=== PATIENT | female | born 1965 | race Caucasian/White ===

== ENCOUNTER 2016-12-22 07:24 | Emergency (ER) | payer OTHER ==
[2016-12-22 07:33] VITALS: BP 140/92; PULSE 100; TEMP 97.6; BMI 30.4
--- NOTE | 2016-12-22 07:40 | PDOC ---
History of Present Illness - General Chief Complaint: Respiratory Stated Complaint: COUGH Time Seen by Provider: 12/22/16 07:38 History Source: Patient Exam Limitations: No Limitations Past History - Past Medical History Allergies/Adverse Reactions: Allergies Allergy/AdvReac Type Severity Reaction Status Date / Time Penicillins Allergy Mild Verified 12/22/16 07:27 amlodipine Allergy Verified 12/22/16 07:27 amoxicillin Allergy Verified 12/22/16 07:27 clonidine Allergy Verified 12/22/16 07:27 diltiazem Allergy Verified 12/22/16 07:27 nebivolol HCl [From Bystolic] Allergy Verified 12/22/16 07:27 triamterene Allergy Verified 12/22/16 07:27 epinephrine AdvReac Severe Verified 12/22/16 07:27 lisinopril AdvReac Unknown Verified 12/22/16 07:27 Home Medications: Ambulatory Orders Diazepam [Valium] 5 mg PO PRN PRN 12/17/15 Loratadine [Claritin] 10 mg PO DAILY PRN #10 tablet 12/22/16 Anemia: No Asthma: No Cancer: No Cardiac Disorders: No CVA: No COPD: No CHF: No Dementia: No Diabetes: No GI Disorders: No Disorders: Yes (KIDNEY STONES,LITHOTRIPSY) HTN: Yes Hypercholesterolemia: No Liver Disease: No Psychiatric Problems: Yes (ANXIETY) Seizures: No Thyroid Disease: No - Psycho/Social/Smoking Cessation Hx Anxiety: No Suicidal Ideation: No Smoking History: Current every day smoker Have you smoked in the past 12 months: Yes Number of Cigarettes Smoked Daily: 10 Information on smoking cessation initiated: No 'Breaking Loose' booklet given: 07/31/16 Hx Alcohol Use: No Drug/Substance Use Hx: No Substance Use Type: None Review of Systems - Review of Systems Comments:: 12/22/16 08:47 GENERAL/CONSTITUTIONAL: No fever, weakness. HEAD, EYES, EARS, NOSE AND THROAT: No change in vision. No ear pain or discharge. No sore throat. CARDIOVASCULAR: No chest pain or shortness of breath. RESPIRATORY: +cough GASTROINTESTINAL: No abdominal pain, nausea, vomiting, diarrhea, or decreased PO intolerance. GENITOURINARY: No dysuria, frequency, or change in urination. MUSCULOSKELETAL: No joint or muscle swelling or pain. No neck or back pain. SKIN: No rash NEUROLOGIC: No headache, vertigo, loss of consciousness, or change in strength/ sensation. ENDOCRINE: No increased thirst. No abnormal weight change. HEMATOLOGIC/LYMPHATIC: No anemia, easy bleeding, or history of blood clots. ALLERGIC/IMMUNOLOGIC: No hives or skin allergy. *Physical Exam - Vital Signs Last Vital Signs Temp Pulse Resp BP Pulse Ox 97.6 F 100 H 16 140/92 97 12/22/16 07:28 12/22/16 07:28 12/22/16 07:28 12/22/16 07:28 12/22/16 07:28 - Physical Exam Comments: 12/22/16 08:48 GENERAL: Awake, alert, and fully oriented, in no acute distress. HEAD: No signs of trauma EYES: PERRLA, EOMI, sclera anicteric, conjunctiva clear ENT: Auricles normal inspection, hearing grossly normal, nares patent, oropharynx clear without exudates. NECK: Normal ROM, supple, no lymphadenopathy, JVD, or masses LUNGS: Breath sounds equal, clear to auscultation bilaterally. No wheezes, and no crackles HEART: Regular rate and rhythm, normal S1 and S2, no murmurs, rubs or gallops ABDOMEN: Soft, nontender, normoactive bowel sounds. No guarding, no rebound. No masses EXTREMITIES: Normal range of motion, no edema. No clubbing or cyanosis. No cords, erythema, or tenderness NEUROLOGICAL: Cranial nerves II through XII grossly intact. Normal speech, normal gait SKIN: Warm, Dry, normal turgor, no rashes or lesions noted. ED Treatment Course - RADIOLOGY Radiology Studies Ordered: Category Date Time Status CHEST PA & LAT [RAD] Stat Radiology 12/22/16 07:38 Ordered Medical Decision Making - Medical Decision Making 12/22/16 07:38 . Vital Signs Temp Pulse Resp BP Pulse Ox 97.6 F 100 H 16 140/92 97 12/22/16 07:28 12/22/16 07:28 12/22/16 07:28 12/22/16 07:28 12/22/16 07:28 51-year-old female with past medical history of hypertension, half pack per day smoker presents with cough for one week. Patient reports tactile fevers, chills , dry cough. States that the symptoms were persistent. 6 days ago, patient had visited her primary care physician and had a chest x-ray performed which was negative and was prescribed azithromycin for potential bronchitis. Patient had just completed her 5 day course of azithromycin reports that symptoms were persistent. Denies fevers or chills now. Reports that she has chest pain with cough. We'll obtain a chest x-ray, though I suspect that this is likely viral in origin. Chest x-ray is negative, symptomatically treatment and follow-up with primary care physician. 12/22/16 08:47 Chest xray reviewed. No acute findings. We'll treat this as a viral syndrome. Seasonal ALLERGIES may be contributing to his symptoms. We'll prescribe Claritin as well. Patient has an appointment with her primary care doctor in 4 days. Supportive care. Smoking cessation counseled. I discussed the physical exam findings, ancillary test results and final diagnoses with the patient. I answered all of the patient's questions. The patient was satisfied with the care received and felt comfortable with the discharge plan and treatment plan. The patient will call their primary care physician within 24 hours to arrange follow-up and will return to the Emergency Department with any new, persistant or worsening symptoms. *DC/Admit/Observation/Transfer Diagnosis at time of Disposition: Viral syndrome - Discharge Dispostion Disposition: HOME Condition at time of disposition: Stable Admit: No - Prescriptions Prescriptions: Loratadine [Claritin] 10 mg PO DAILY PRN #10 tablet PRN Reason: Allergies - Referrals Referrals: Trevor Taylor MD [Primary Care Provider] - - Patient Instructions Printed Discharge Instructions: DI for Cough -- Adult, DI for Costochondritis Additional Instructions: Your chest x-ray is negative. However, please try the Claritin daily as needed as prescribed. You may use humidifier for symptom relief. Your symptoms may persist for several days to another week or two. Please see your doctor this for follow-up. - Post Discharge Activity Work/School Note: Back to Work
[2016-12-22] MEDS ORDERED: SODIUM CHLORIDE FOR INHALATION 3 ML VIAL.NEB IH ONE (07:47)
== END 2016-12-22 08:57 | disposition home or self-care (01) ==
LOC: FER 07:24
PROC: 3E0F7GC Introduction of Other Therapeutic Substance into Respiratory Tract, Via Natural or Artificial Opening (ICD-10-PCS; principal; 2016-12-22)
DX: B34.9 Viral infection, unspecified (principal); I10 Essential (primary) hypertension; F41.9 Anxiety disorder, unspecified; F17.210 Nicotine dependence, cigarettes, uncomplicated; Z87.442 Personal history of urinary calculi
CPT/HCPCS: 71020-TC; 94640; 99282-25

== ENCOUNTER 2016-12-26 06:25 | Emergency (ER) | payer OTHER ==
[2016-12-26 06:41] VITALS: TEMP 98.4; BMI 26.6
--- NOTE | 2016-12-26 06:50 | PDOC ---
History of Present Illness - General History Source: Patient Exam Limitations: No Limitations - History of Present Illness Initial Comments: 12/26/16 06:47 This is a 51-year-old female who comes in complaining of upper respiratory symptoms, cough, congestion. Patient said that during the night she woke up profusely diaphoretic and feeling very weak and nauseous. Patient denied any chest pain at that time however patient is a smoker has history of hypertension high cholesterol. Patient took an aspirin was concerned that there may be something going on with her heart. Patient otherwise has had the upper respiratory tract symptoms for a couple weeks. Patient has been to her doctor multiple times and this emergency room twice. Patient has taken 2Z packs has had 2 x-rays and been evaluated on numerous occasions for her cough and congestion. Patient last had an x-ray a few days ago and started a new Z-Zachary a few days ago. PAST MEDICAL HISTORY: no significant history PAST SURGICAL HISTORY: no significant history FAMILY HISTORY: no pertinant history SOCIAL HISTORY: Pt lives with family and is employed. MEDICATIONS: reviewed ALLERGIES: As per nursing notes Review of Systems General: No fevers or chills, no weakness, no weight loss HEENT: No change in vision. No sore throat,. No ear pain CardioVascular: No chest pain or shortness of breath Respiratory:+ cough, or wheezing. Gastrointestinal: + nausea, no vomitting, diarrhea or constipation, No rectal bleeding Genitourinary: No dysuria, hematuria, or frequency Musculoskeletal: No joint or muscle pain or swelling Neurologic: No headache, vertigo, dizziness or loss of consciousness Psychiatric: nor depression Skin: No rashes or easy bruising Endocrine: no increased thirst or abnormal weight change Allergic: no skin or latex allergy All other systems reviewed and normal Exam: General: Well-nourished well-developed individual, no acute distress HEENT: Throat: Normal, tonsils normal, no erythema or exudate Neck: Supple, no meningeal signs, no lymphadenopathy Eyes::Pupils equal reactive and round, extraocular motion intact Chest: Nontender to palpation Cardiac: S1-S2 normal, regular rate and rhythm, no murmurs rubs or gallops Respiratory: Lungs clear to auscultation bilateral Abdomen: Soft, nondistended, normal bowel sounds, nontender to palpation diffusely Extremities: Warm, dry, no cyanosis, clubbing, or edema Skin: No rashes Neuro: Alert and oriented x3, nonfocal exam, grossly intact, normal gait Psych: Normal mood and affect <Kiara Gagnon I - Last Filed: 12/26/16 06:43> <Fernando Del Valle - Last Filed: 12/26/16 09:18> - General Chief Complaint: Cold Symptoms Stated Complaint: COLD SYMPTOMS Time Seen by Provider: 12/26/16 06:43 Past History - Past Medical History Anemia: No Asthma: No Cancer: No Cardiac Disorders: No CVA: No COPD: No CHF: No Dementia: No Diabetes: No GI Disorders: No Disorders: Yes (KIDNEY STONES,LITHOTRIPSY) HTN: Yes Hypercholesterolemia: No Liver Disease: No Psychiatric Problems: Yes (ANXIETY) Seizures: No Thyroid Disease: No - Psycho/Social/Smoking Cessation Hx Anxiety: Yes Suicidal Ideation: No Smoking History: Current every day smoker Have you smoked in the past 12 months: Yes Number of Cigarettes Smoked Daily: 10 Information on smoking cessation initiated: Yes 'Breaking Loose' booklet given: 07/31/16 Hx Alcohol Use: No Drug/Substance Use Hx: No Substance Use Type: None <Kiara Gagnon I - Last Filed: 12/26/16 06:43> <Fernando Del Valle - Last Filed: 12/26/16 09:18> - Past Medical History Allergies/Adverse Reactions: Allergies Allergy/AdvReac Type Severity Reaction Status Date / Time Penicillins Allergy Mild Verified 12/22/16 07:27 amlodipine Allergy Verified 12/22/16 07:27 amoxicillin Allergy Verified 12/22/16 07:27 clonidine Allergy Verified 12/22/16 07:27 diltiazem Allergy Verified 12/22/16 07:27 nebivolol HCl [From Bystolic] Allergy Verified 12/22/16 07:27 triamterene Allergy Verified 12/22/16 07:27 epinephrine AdvReac Severe Verified 12/22/16 07:27 lisinopril AdvReac Unknown Verified 12/22/16 07:27 Home Medications: Ambulatory Orders Diazepam [Valium] 5 mg PO PRN PRN 12/17/15 Azithromycin 250 mg PO DAILY 12/26/16 *Physical Exam - Vital Signs Last Vital Signs Temp Pulse Resp BP Pulse Ox 98.4 F 76 16 144/104 97 12/26/16 06:38 12/26/16 06:38 12/26/16 06:38 12/26/16 06:38 12/26/16 06:38 <Kiara Gagnon I - Last Filed: 12/26/16 06:43> - Vital Signs Last Vital Signs Temp Pulse Resp BP Pulse Ox 98.4 F 66 18 148/98 97 12/26/16 06:38 12/26/16 08:00 12/26/16 08:00 12/26/16 08:00 12/26/16 08:00 <Fernando Del Valle - Last Filed: 12/26/16 09:18> ED Treatment Course - LABORATORY CBC & Chemistry Diagram: 12/26/16 07:00 12/26/16 07:00 - ADDITIONAL ORDERS Additional order review: Laboratory Results 12/26/16 12/26/16 07:00 07:00 Sodium 136 Potassium 4.2 Chloride 106 Carbon Dioxide 23 Anion Gap 7 L BUN 11 D Creatinine 0.7 Creat Clearance w eGFR > 60 Random Glucose 109 H Calcium 9.1 Total Bilirubin 0.5 AST 18 ALT 21 D Alkaline Phosphatase 82 Creatine Kinase 64 Troponin I < 0.03 L Total Protein 6.3 L Albumin 3.5 12/26/16 07:00 RBC 5.46 H MCV 88.3 MCHC 34.1 RDW 12.6 MPV 8.2 Neutrophils % Y Lymphocytes % Y <Fernando Del Valle - Last Filed: 12/26/16 09:18> Progress Note - Progress Note Progress Note: EKG normal sinus rhythm normal axes and intervals no ST-T wave changes normal EKG Laboratories including CBC chemistries and cardiac enzymes without significant abnormalities The patient has been on Zithromax, had normal chest x-ray earlier this week. No fever/chills or shortness of breath. No chest pain Symptoms are most likely due to residual inflammation of the bronchi due to prior viral infection, or severe ALLERGY symptoms, exacerbated by long smoking history. Smoking cessation was highly recommended, as well as treatments for ALLERGIES. Referral to tie loader if no improvement. Patient fully ambulatory, without shortness of breath, chest pain, or fever upon discharge with to follow- up as directed. <Fernando Del Valle - Last Filed: 12/26/16 09:18> *DC/Admit/Observation/Transfer <Kiara Gagnon I - Last Filed: 12/26/16 06:43> - Discharge Dispostion Admit: No <EleazardonnaFernando Олег - Last Filed: 12/26/16 09:18> Diagnosis at time of Disposition: Allergic bronchitis Qualifiers: Asthma severity: mild intermittent Asthma complication type: with acute exacerbation Qualified Code(s): J45.21 - Mild intermittent asthma with (acute) exacerbation - Discharge Dispostion Disposition: HOME Condition at time of disposition: Stable - Referrals Referrals: Trevor Taylor MD [Primary Care Provider] - 1 week Munir Lizarraga MD [Staff Physician] - - Patient Instructions Printed Discharge Instructions: Allergies, Respiratory (Alternative Therapy), Positive Mental Health Changes Found After Smoking Cessation, Smoking Cessation Associated with Decreases Risk of Complications After Mark, Smoking and Smoking Cessation in Relation to Mortality in Women Additional Instructions: Mucinex Amy Flonase nasal spray
[2016-12-26 07:39] LABS: MCH 30.1 pg (25.7-33.7); MCHC 34.1 g/dl (32.0-36.0); MEAN CELL VOLUME 88.3 fl (80-96); MEAN PLT VOLUME 8.2 fl (7.5-11.1); PLATELET COUNT 426 K/MM3 (134-434); RDW 12.6 % (11.6-15.6); WHITE BLOOD COUNT 12.9 K/mm3 (4.0-10.8)
[2016-12-26 07:49] LABS: ALBUMIN 3.5 g/dl (3.5-5.0); ALK PHOS 82 U/L (32-92); ANION GAP 7 (8-16); BILIRUBIN,TOTAL 0.5 mg/dl (0.2-1.0); CALCIUM 9.1 mg/dl (8.4-10.2); CO2 23 mmol/L (22-28); CREATININE 0.7 mg/dl (0.6-1.3); GLUCOSE,RANDOM 109 mg/dl (74-106); SGOT/AST 18 U/L (10-42); SGPT/ALT 21 U/L (10-40); TOT PROT 6.3 g/dl (6.4-8.3)
[2016-12-26 07:50] LABS: CPK(DFH) 64 IU/L (26-140)
[2016-12-26 08:01] VITALS: BP 148/98; PULSE 66
[2016-12-26 08:41] LABS: TROPONIN I (DFP) < 0.03 ng/ml (0.03-0.50)
[2016-12-26 14:02] LABS: PLATELET ESTIMATE SLT INCREASED (NORMAL)
--- NOTE | 2016-12-26 17:28 | EKG ---
Test Reason : Blood Pressure : / mmHG Vent. Rate : 067 BPM Atrial Rate : 067 BPM P-R Int : 176 ms QRS Dur : 094 ms QT Int : 392 ms P-R-T Axes : 023 -05 019 degrees QTc Int : 414 ms NORMAL SINUS RHYTHM WHEN COMPARED WITH ECG OF 02-JUL-2015 12:57, MINIMAL CRITERIA FOR ANTERIOR INFARCT ARE NO LONGER PRESENT T WAVE AMPLITUDE HAS INCREASED IN ANTERIOR LEADS Confirmed by MD AGUS, LUZ ELENA ([id number]) on 12/26/2016 5:28:17 PM Referred By: MD VALIENTE Confirmed By:LUZ ELENA GOLDSMITH MD
== END 2016-12-26 09:22 | disposition home or self-care (01) ==
LOC: FER 06:25
DX: J45.21 Mild intermittent asthma with (acute) exacerbation (principal)
CPT/HCPCS: 36415; 80053; 82550; 84484; 85025; 93005; 99282-25

== ENCOUNTER 2017-05-10 07:25 | Emergency (ER) | payer OTHER ==
[2017-05-10 07:33] VITALS: PULSE 89; TEMP 99.1; BMI 30.4
--- NOTE | 2017-05-10 07:34 | PDOC ---
History of Present Illness - General Chief Complaint: Respiratory Stated Complaint: COUGH Time Seen by Provider: 05/10/17 07:31 History Source: Patient Exam Limitations: No Limitations - History of Present Illness Initial Comments: 05/10/17 07:34 52-year-old female with history of hypertension, current smoker presents with cough for approximately one week. One week ago, patient reports sick contact with her boyfriend. She developed a fever 102 but the fever subsided. Denies chest pain but reports that her coughing has become productive and greenish in color. She denies chest pain or shortness of breath. However, she reports that the coughing is worsening. She continues to smoke. Past History - Past Medical History Allergies/Adverse Reactions: Allergies Allergy/AdvReac Type Severity Reaction Status Date / Time Penicillins Allergy Mild Verified 05/10/17 07:26 amlodipine Allergy Verified 05/10/17 07:26 amoxicillin Allergy Verified 05/10/17 07:26 clonidine Allergy Verified 05/10/17 07:26 diltiazem Allergy Verified 05/10/17 07:26 nebivolol HCl [From Bystolic] Allergy Verified 05/10/17 07:26 triamterene Allergy Verified 05/10/17 07:26 epinephrine AdvReac Severe Verified 05/10/17 07:26 lisinopril AdvReac Unknown Verified 05/10/17 07:26 Home Medications: Ambulatory Orders Azithromycin 250 mg PO DAILY 12/26/16 Albuterol Sulfate Inhaler - [Ventolin HFA Inhaler -] 1 - 2 inh PO Q4H PRN #1 inhaler 05/10/17 Azithromycin [Zithromax 250mg Tablets -] 250 mg PO UTDICT #6 tab 05/10/17 Anemia: No Asthma: No Cancer: No Cardiac Disorders: No CVA: No COPD: No CHF: No Dementia: No Diabetes: No GI Disorders: No Disorders: Yes (KIDNEY STONES,LITHOTRIPSY) HTN: Yes Hypercholesterolemia: No Liver Disease: No Psychiatric Problems: Yes (ANXIETY) Seizures: No Thyroid Disease: No - Suicide/Smoking/Psychosocial Hx Smoking History: Current every day smoker Have you smoked in the past 12 months: Yes Number of Cigarettes Smoked Daily: 15 Information on smoking cessation initiated: Yes 'Breaking Loose' booklet given: 12/26/16 Hx Alcohol Use: No Drug/Substance Use Hx: No Substance Use Type: None Review of Systems - Review of Systems Able to Perform ROS?: Yes Comments:: 05/10/17 07:35 GENERAL/CONSTITUTIONAL: No fever, weakness. HEAD, EYES, EARS, NOSE AND THROAT: No change in vision. No ear pain or discharge. No sore throat. CARDIOVASCULAR: No chest pain or shortness of breath. RESPIRATORY: +Cough GASTROINTESTINAL: No abdominal pain, nausea, vomiting, diarrhea, or decreased PO intolerance. GENITOURINARY: No dysuria, frequency, or change in urination. MUSCULOSKELETAL: No joint or muscle swelling or pain. No neck or back pain. SKIN: No rash NEUROLOGIC: No headache, vertigo, loss of consciousness, or change in strength/ sensation. ENDOCRINE: No increased thirst. No abnormal weight change. HEMATOLOGIC/LYMPHATIC: No anemia, easy bleeding, or history of blood clots. ALLERGIC/IMMUNOLOGIC: No hives or skin allergy. *Physical Exam - Physical Exam Comments: 05/10/17 07:36 GENERAL: Awake, alert, and fully oriented, in no acute distress. HEAD: No signs of trauma EYES: PERRLA, EOMI, sclera anicteric, conjunctiva clear ENT: Auricles normal inspection, hearing grossly normal, nares patent, oropharynx clear without exudates. NECK: Normal ROM, supple, no lymphadenopathy, JVD, or masses LUNGS: Breath sounds equal, clear to auscultation bilaterally. Occasional scattered feint expiratory wheezing bilaterally. HEART: Regular rate and rhythm, normal S1 and S2, no murmurs, rubs or gallops ABDOMEN: Soft, nontender, normoactive bowel sounds. No guarding, no rebound. No masses EXTREMITIES: Normal range of motion, no edema. No clubbing or cyanosis. No cords, erythema, or tenderness NEUROLOGICAL: Cranial nerves II through XII grossly intact. Normal speech, normal gait SKIN: Warm, Dry, normal turgor, no rashes or lesions noted. Medical Decision Making - Medical Decision Making 05/10/17 07:36 Vital Signs Temp Pulse Resp BP Pulse Ox 99.1 F 89 18 149/106 95 05/10/17 07:26 05/10/17 07:26 05/10/17 07:26 05/10/17 07:26 05/10/17 07:26 I suspect this is likely bronchitis. The patient's lungs overall sound clear with occasionally faint extremity wheezing, likely secondary to her smoking history. We'll prescribe her an albuterol pump and azithromycin, which patient reports she is not ALLERGIC to. We'll have her follow with her primary care physician. I discussed the physical exam findings, ancillary test results and final diagnoses with the patient. I answered all of the patient's questions. The patient was satisfied with the care received and felt comfortable with the discharge plan and treatment plan. The patient will call their primary care physician within 24 hours to arrange follow-up and will return to the Emergency Department with any new, persistant or worsening symptoms. *DC/Admit/Observation/Transfer Diagnosis at time of Disposition: Bronchitis - Discharge Dispostion Disposition: HOME Condition at time of disposition: Stable Admit: No - Prescriptions Prescriptions: Albuterol Sulfate Inhaler - [Ventolin HFA Inhaler -] 1 - 2 inh PO Q4H PRN #1 inhaler PRN Reason: Wheezing Azithromycin [Zithromax 250mg Tablets -] 250 mg PO UTDICT #6 tab - Patient Instructions Printed Discharge Instructions: DI for Acute Bronchitis Additional Instructions: Take the azithromycin as prescribed. Take 2 puffs of albuterol every 4 hours as needed for wheezing. Follow up with your doctor.
[2017-05-10 08:08] VITALS: BP 135/97
== END 2017-05-10 07:42 | disposition home or self-care (01) ==
LOC: FER 07:25
DX: J40 Bronchitis, not specified as acute or chronic (principal); I10 Essential (primary) hypertension; F17.210 Nicotine dependence, cigarettes, uncomplicated; F41.9 Anxiety disorder, unspecified
CPT/HCPCS: 99281-25

== ENCOUNTER 2018-01-14 16:52 | Emergency (ER) | payer OTHER ==
[2018-01-14] MEDS ORDERED: SULFAMETHOXAZOLE/TRIMETHOPRIM 800MG/160MG D.S. TABLET PO ONE (16:58)
[2018-01-14 17:05] VITALS: BP 157/110; PULSE 84; TEMP 98.5; BMI 30.4
[2018-01-14] MEDS ORDERED: SULFAMETHOXAZOLE/TRIMETHOPRIM 800MG/160MG D.S. TABLET ONE (17:17)
--- NOTE | 2018-01-14 17:24 | PDOC ---
History of Present Illness - General History Source: Patient, Old Records Exam Limitations: No Limitations - History of Present Illness Initial Comments: 01/14/18 17:27 The patient is a 53 year old female with a significant past medical history of hypertension, kidney stones, and anxiety who presents to the emergency department for evaluation of chest wound/redness. The patient reports draining pus out of a cyst on the sternum of her chest with a hot needle. The patient reports the cyst is no longer apparent, but notes redness developed around the site of the cyst, which prompted her to visit the emergency department for further evaluation. 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 The patient denies chest pain, shortness of breath, headache, and dizziness. Denies fevers, chills, nausea, and vomiting. Allergies: Penicillins, amlodipine, amoxicillin, clonidine, diltiazem, nebivolol , triamterene, epinephrine, lisinopril. Past surgical history: Cholecystectomy, hysterectomy 09/14/15. Social history: Reported cigarette use. No reported alcohol or drug use. <Delia King - Last Filed: 01/14/18 17:27> - General History Source: Patient, Old Records Exam Limitations: No Limitations <Ted Diaz - Last Filed: 01/14/18 17:51> - General Chief Complaint: Wound Stated Complaint: pimple on chest Time Seen by Provider: 01/14/18 16:57 Past History <Delia King - Last Filed: 01/14/18 17:27> - Past Medical History Anemia: No Asthma: No Cancer: No Cardiac Disorders: No CVA: No COPD: No CHF: No Dementia: No Diabetes: No GI Disorders: No Disorders: Yes (KIDNEY STONES,LITHOTRIPSY) HTN: Yes Hypercholesterolemia: No Liver Disease: No Psychiatric Problems: Yes (ANXIETY) Seizures: No Thyroid Disease: No - Surgical History Cholecystectomy: Yes - Suicide/Smoking/Psychosocial Hx Smoking History: Current every day smoker Have you smoked in the past 12 months: Yes Number of Cigarettes Smoked Daily: 15 Information on smoking cessation initiated: No 'Breaking Loose' booklet given: 05/10/17 Hx Alcohol Use: Yes (occasional) Drug/Substance Use Hx: No Substance Use Type: None <Ted Diaz - Last Filed: 01/14/18 17:51> - Past Medical History Allergies/Adverse Reactions: Allergies Allergy/AdvReac Type Severity Reaction Status Date / Time Penicillins Allergy Mild Verified 01/14/18 17:00 amlodipine Allergy Verified 01/14/18 17:00 amoxicillin Allergy Verified 01/14/18 17:00 clonidine Allergy Verified 01/14/18 17:00 diltiazem Allergy Verified 01/14/18 17:00 nebivolol HCl [From Bystolic] Allergy Verified 01/14/18 17:00 triamterene Allergy Verified 01/14/18 17:00 epinephrine AdvReac Severe Verified 01/14/18 17:00 lisinopril AdvReac Unknown Verified 01/14/18 17:00 Home Medications: Ambulatory Orders Sulfamethoxazole/Trimethoprim [Bactrim Ds -] 1 tab PO BID #14 tablet 01/14/18 Review of Systems - Review of Systems Able to Perform ROS?: Yes Comments:: GENERAL/CONSTITUTIONAL: No fever or chills. No weakness. HEAD, EYES, EARS, NOSE AND THROAT: No change in vision. No ear pain or discharge. No sore throat. CARDIOVASCULAR: No chest pain or shortness of breath. RESPIRATORY: No cough, wheezing, or hemoptysis. GASTROINTESTINAL: No nausea, vomiting, diarrhea or constipation. GENITOURINARY: No dysuria, frequency, or change in urination. MUSCULOSKELETAL: No joint or muscle swelling or pain. No neck or back pain. SKIN: (+)Midsternal redness. NEUROLOGIC: No headache, vertigo, loss of consciousness, or change in strength/ sensation. ENDOCRINE: No increased thirst. No abnormal weight change. HEMATOLOGIC/LYMPHATIC: No anemia, easy bleeding, or history of blood clots. ALLERGIC/IMMUNOLOGIC: No hives or skin allergy. <Delia King - Last Filed: 01/14/18 17:27> *Physical Exam - Vital Signs Last Vital Signs Temp Pulse Resp BP Pulse Ox 98.5 F 84 18 157/110 97 01/14/18 16:53 01/14/18 16:53 01/14/18 16:53 01/14/18 16:53 01/14/18 16:53 - Physical Exam Comments: GENERAL: Awake, alert, and fully oriented, in no acute distress HEAD: No signs of trauma EYES: PERRLA, EOMI, sclera anicteric, conjunctiva clear NECK: Normal ROM, supple. LUNGS: Breath sounds equal, clear to auscultation bilaterally. No wheezes, and no crackles HEART: Regular rate and rhythm, normal S1 and S2, no murmurs, rubs or gallops ABDOMEN: Soft, nontender. No guarding, no rebound. No masses EXTREMITIES: Normal range of motion, no edema. No clubbing or cyanosis. No cords, erythema, or tenderness NEUROLOGICAL: Cranial nerves II through XII grossly intact. Normal speech. SKIN: (+)2x2cm erythema and induration, with no fluctuance, of midsternal chest. Warm, Dry, normal turgor. <Delia iKng - Last Filed: 01/14/18 17:27> - Vital Signs Last Vital Signs Temp Pulse Resp BP Pulse Ox 98.5 F 84 18 157/110 97 01/14/18 16:53 01/14/18 16:53 01/14/18 16:53 01/14/18 16:53 01/14/18 16:53 <Ted Diaz - Last Filed: 01/14/18 17:51> ED Treatment Course - Medications Given in the ED: ED Medications Discontinued Medications Generic Name Dose Route Start Last Admin Trade Name Freq PRN Reason Stop Dose Admin Trimethoprim/Sulfamethoxazole 1 each 01/14/18 16:58 01/14/18 17:19 Bactrim Ds - PO 01/14/18 16:59 1 each ONCE ONE Administration <Delia King - Last Filed: 01/14/18 17:27> - Medications Given in the ED: ED Medications Discontinued Medications Generic Name Dose Route Start Last Admin Trade Name Freq PRN Reason Stop Dose Admin Trimethoprim/Sulfamethoxazole 1 each 01/14/18 16:58 01/14/18 17:19 Bactrim Ds - PO 01/14/18 16:59 1 each ONCE ONE Administration <Ted Diaz - Last Filed: 01/14/18 17:51> Medical Decision Making - Medical Decision Making 01/14/18 17:22 A portion of this note was documented by scribe services under my direction. I have reviewed the details of the note, within reason, and agree with the documentation with the following case summary and management plan written by me. Patient treated in the ED. Nursing notes are reviewed and incorporated into the medical decision-making. Vital signs reviewed. Vital Signs Temp Pulse Resp BP Pulse Ox 98.5 F 84 18 157/110 97 01/14/18 16:53 01/14/18 16:53 01/14/18 16:53 01/14/18 16:53 01/14/18 16:53 53-year-old female patient with history of hypertension, smoking history presents with cellulitis of the anterior chest. Patient reports that she had a month-long of a small cyst. She attempted to make an appointment with a supervisor alteration workroom but was able to sew to February. The patient had taken a needle that she sterilizer self with the flame and suctioned out some pus. She states that it was all gone. However, patient noted that she had this anterior erythema that was tender to palpation. No fevers or chills. The patient has cellulitis with induration but there is no evidence of fluctuance at this time. No abscesses or boils at the moment. Given her multiple drug ALLERGIES, we'll initiate Bactrim and have the patient follow-up with her primary care physician. I instructed the patient that if she develops an abscess, that she should return to the ER for an incision and drainage. <Ted Diaz - Last Filed: 01/14/18 17:51> *DC/Admit/Observation/Transfer - Attestations Scribe Attestion: Documentation prepared by Delia King, acting as medical research assistant for Ted Diaz MD. <Delia King - Last Filed: 01/14/18 17:27> - Discharge Dispostion Decision to Admit order: No <Ted Diaz - Last Filed: 01/14/18 17:51> Diagnosis at time of Disposition: Cellulitis Qualifiers: Site of cellulitis: trunk Site of cellulitis of trunk: chest wall Qualified Code(s): L03.313 - Cellulitis of chest wall - Discharge Dispostion Disposition: HOME Condition at time of disposition: Stable - Prescriptions Prescriptions: Sulfamethoxazole/Trimethoprim [Bactrim Ds -] 1 tab PO BID #14 tablet - Referrals - Patient Instructions Printed Discharge Instructions: DI for Cellulitis -- Adult, Smoking Cessation Additional Instructions: Please take 1 tablet of bactrim every 12 hours for 1 week. Please drink plenty of fluids and rest. It will likely take several days before your symptoms improve. If you notice an abscess or boiling developing, please return to the ER for further evaluation. If you notice a worsening rash or diffuse body rash while taking the medication , please stop taking the medication and return to the ER. - Post Discharge Activity
== END 2018-01-14 17:57 | disposition home or self-care (01) ==
LOC: FER 16:52
DX: L03.313 Cellulitis of chest wall (principal); I10 Essential (primary) hypertension; F41.9 Anxiety disorder, unspecified; Z87.442 Personal history of urinary calculi
CPT/HCPCS: 99281-25

== ENCOUNTER 2018-01-18 12:12 | Emergency (ER) | payer OTHER ==
--- NOTE | 2018-01-18 12:22 | PDOC ---
History of Present Illness - General Chief Complaint: Pain, Acute Stated Complaint: redness/ pain on chest Time Seen by Provider: 01/18/18 12:21 - History of Present Illness Initial Comments: 01/18/18 12:34 53yo F hx hypertension, kidney stones, and anxiety presents to the emergency Department for a wound check. Patient was seen here 5 days ago her wound on the lateral R sternum that she had drained with a hot needle. At the time, the wound was found to be indurated but not fluctuant and pt was DC with bactrim. Pt has been taking bactrim and states redness has improved but she has persistent pain and is wondering if there is anything to drain. Denies fevers, chills. Denies other sxs of CP, SOB, abd pain, N/V/D, weakness, dizziness. Past History - Past Medical History Allergies/Adverse Reactions: Allergies Allergy/AdvReac Type Severity Reaction Status Date / Time Penicillins Allergy Mild Verified 01/18/18 12:13 amlodipine Allergy Verified 01/18/18 12:13 amoxicillin Allergy Verified 01/18/18 12:13 clonidine Allergy Verified 01/18/18 12:13 diltiazem Allergy Verified 01/18/18 12:13 nebivolol HCl [From Bystolic] Allergy Verified 01/18/18 12:13 triamterene Allergy Verified 01/18/18 12:13 epinephrine AdvReac Severe Verified 01/18/18 12:13 lisinopril AdvReac Unknown Verified 01/18/18 12:13 Home Medications: Ambulatory Orders Sulfamethoxazole/Trimethoprim [Bactrim Ds -] 1 tab PO BID #14 tablet 01/14/18 Anemia: No Asthma: No Cancer: No Cardiac Disorders: No CVA: No COPD: No CHF: No Dementia: No Diabetes: No GI Disorders: No Disorders: Yes (KIDNEY STONES,LITHOTRIPSY) HTN: Yes Hypercholesterolemia: No Liver Disease: No Psychiatric Problems: Yes (ANXIETY) Seizures: No Thyroid Disease: No - Surgical History Cholecystectomy: Yes - Suicide/Smoking/Psychosocial Hx Smoking History: Current every day smoker Have you smoked in the past 12 months: Yes Number of Cigarettes Smoked Daily: 15 Information on smoking cessation initiated: Yes 'Breaking Loose' booklet given: 01/18/18 Hx Alcohol Use: No Drug/Substance Use Hx: No Substance Use Type: None Review of Systems - Review of Systems Comments:: 01/18/18 12:37 GENERAL/CONSTITUTIONAL: No fever or chills. No weakness. HEAD, EYES, EARS, NOSE AND THROAT: No change in vision. No ear pain or discharge. No sore throat. GASTROINTESTINAL: No nausea, vomiting, diarrhea or constipation. GENITOURINARY: No dysuria, frequency, or change in urination. CARDIOVASCULAR: No chest pain or shortness of breath. RESPIRATORY: No cough, wheezing, or hemoptysis. MUSCULOSKELETAL: No joint or muscle swelling or pain. No neck or back pain. SKIN: +wound on chest NEUROLOGIC: No headache, vertigo, loss of consciousness, or change in strength/ sensation. ENDOCRINE: No increased thirst. No abnormal weight change. HEMATOLOGIC/LYMPHATIC: No anemia, easy bleeding, or history of blood clots. ALLERGIC/IMMUNOLOGIC: No hives or skin allergy. *Physical Exam - Vital Signs Last Vital Signs Temp Pulse Resp BP Pulse Ox 98.3 F 82 18 142/99 100 01/18/18 12:13 01/18/18 12:13 01/18/18 12:13 01/18/18 12:13 01/18/18 12:13 - Physical Exam Comments: 01/18/18 12:37 GENERAL: Awake, alert, and fully oriented, in no acute distress HEAD: No signs of trauma EYES: PERRLA, EOMI, sclera anicteric, conjunctiva clear ENT: Auricles normal inspection, hearing grossly normal, nares patent, oropharynx clear without exudates. Moist mucosa NECK: Normal ROM, supple, no lymphadenopathy, JVD, or masses LUNGS: Breath sounds equal, clear to auscultation bilaterally. No wheezes, and no crackles HEART: Regular rate and rhythm, normal S1 and S2, no murmurs, rubs or gallops ABDOMEN: Soft, nontender, normoactive bowel sounds. No guarding, no rebound. No masses EXTREMITIES: Normal range of motion, no edema. No clubbing or cyanosis. No cords, erythema, or tenderness NEUROLOGICAL: Normal speech, cranial nerves intact, negative pronator drift, 5/ 5 strength in all 4 extremities, normal sensation to light touch in all 4 extremities, normal cerebellar exam, normal gait, normal reflexes and tone SKIN: Right mid sternum with 1x1cm non tender erythematous indurated but non- fluctuant cyst. Otherwise, warm, Dry, normal turgor, no rashes or lesions noted. Medical Decision Making - Medical Decision Making 01/18/18 12:40 53-year-old female presents to the emergency department for wound check. Cyst appears improved compared to last documented exam in terms of erythema and tenderness. Cyst is not fluctuant today, and no benefit to draining the cyst today. Bactrim appears to be working for the cellulitis, and thus patient encouraged to continue completing the course of Bactrim. Will refer the patient to surgery for definitive management of the cyst. Patient is well-appearing and clinically stable. I discussed the physical exam findings, ancillary test results and final diagnoses with the patient. I answered all of the patient's questions. The patient was satisfied with the care received and felt comfortable with the discharge plan and treatment plan. The patient will call their primary care physician within 24 hours to arrange follow-up and will return to the Emergency Department with any new, persistent or worsening symptoms. *DC/Admit/Observation/Transfer Diagnosis at time of Disposition: Cyst, Cellulitis - Discharge Dispostion Disposition: HOME Condition at time of disposition: Stable Decision to Admit order: No - Referrals Referrals: Yuriy Rogers MD [Staff Physician] - - Patient Instructions Printed Discharge Instructions: DI for Wound Infection Additional Instructions: Continue taking the bactrim as prescribed. Call Dr. Rogers's office for a follow up appointment with surgery within 1 week. Take tylenol or motrin as needed for pain. Return to the emergency department if you have any new, worsening, or concerning symptoms. - Post Discharge Activity - Attestations Physician Attestion: 01/18/18 12:44 I, Dr. Isaiah Gunn MD, attest that this document has been prepared under my direction and personally reviewed by me in its entirety. I further attest, that it accurately reflects all work, treatment, procedures and medical decision -making performed by me.
[2018-01-18 12:27] VITALS: BP 142/99; PULSE 82; TEMP 98.3; BMI 30.4
== END 2018-01-18 12:47 | disposition home or self-care (01) ==
LOC: FER 12:12
DX: Z48.00 Encounter for change or removal of nonsurgical wound dressing (principal); F41.9 Anxiety disorder, unspecified; I10 Essential (primary) hypertension; F17.210 Nicotine dependence, cigarettes, uncomplicated
CPT/HCPCS: 99281-25

== ENCOUNTER 2018-03-21 19:24 | Emergency (ER) | payer OTHER ==
--- NOTE | 2018-03-21 19:35 | PDOC ---
History of Present Illness - General History Source: Patient, Old Records Exam Limitations: No Limitations - History of Present Illness Initial Comments: 03/21/18 20:36 Patient is a 53 year old female with a significant past medical history of hypertension (Diet controlled, unmedicated), kidney stones, and anxiety who presents to the ED with complaints of dizziness that began on January 22 2018. Patient reports experiencing an episode of vertigo on january 22 followed by associated symptoms of dizziness and feeling like the room is spinning. She reports feeling that the room is spinning subsided shortly after but states she has been constantly dizzy for 1.5 months. Patient reports seeing her ENT physician who stated it was just residual dizziness from her episode that is known to last at minimum x1 month. She reports experiencing intermittent neck stiffness that she states has been intermittent, stating, it prevents her from moving her neck both up and down. Patient reports taking her blood pressure this evening when she noticed it to be 170/122 causing her to be worried which then prompted her to come into the ED for further evaluation. She reports being unable to discern if the blood pressure increase is what is causing her dizziness or if it is caused by her neck pain. Patient states she has been on anti HTN meds in past but states she currently is not being medicated because of numerous medication allergies. Denies chest pain, Sob. Denies nausea, vomiting. Denies contact with sick individuals, out of state travelling. Denies fevers, chills. Denies dysuria, hematuria. Denies diarrhea, constipation. Denies head trauma, blurred vision. Denies any other symptoms. Allergies: Penicillins, Amlodipine, amoxicillin, clonidine, diltiazem, nebivolol HCl, triamterene, epinephrine, lisinopril Social history: Lives with brother. Current smoker. No alcohol. No illicit drugs. Surgical history: Cholecystectomy PMD: Dr. Trevor Taylor <Wayne Medeiros - Last Filed: 03/21/18 23:11> <Rosy Lincoln - Last Filed: 03/22/18 03:24> - General Chief Complaint: Blood Pressure Problem Stated Complaint: HIGH BLOOD PRESSURE Time Seen by Provider: 03/21/18 19:28 Past History <Wayne Medeiros - Last Filed: 03/21/18 23:11> - Past Medical History Anemia: No Asthma: No Cancer: No Cardiac Disorders: No CVA: No COPD: No CHF: No Dementia: No Diabetes: No GI Disorders: No Disorders: Yes (KIDNEY STONES,LITHOTRIPSY) HTN: Yes Hypercholesterolemia: No Liver Disease: No Psychiatric Problems: Yes (ANXIETY) Seizures: No Thyroid Disease: No - Surgical History Cholecystectomy: Yes - Suicide/Smoking/Psychosocial Hx Smoking History: Current every day smoker Have you smoked in the past 12 months: Yes Number of Cigarettes Smoked Daily: 15 'Breaking Loose' booklet given: 01/18/18 Hx Alcohol Use: No Drug/Substance Use Hx: No Substance Use Type: None <Rosy Lincoln - Last Filed: 03/22/18 03:24> - Past Medical History Allergies/Adverse Reactions: Allergies Allergy/AdvReac Type Severity Reaction Status Date / Time Penicillins Allergy Mild Verified 03/21/18 19:29 amlodipine Allergy Verified 03/21/18 19:29 amoxicillin Allergy Verified 03/21/18 19:29 clonidine Allergy Verified 03/21/18 19:29 diltiazem Allergy Verified 03/21/18 19:29 nebivolol HCl [From Bystolic] Allergy Verified 03/21/18 19:29 triamterene Allergy Verified 03/21/18 19:29 epinephrine AdvReac Severe Verified 03/21/18 19:29 lisinopril AdvReac Unknown Verified 03/21/18 19:29 Home Medications: Ambulatory Orders Diazepam [Valium] 2.5 mg PO ASDIR 03/21/18 Review of Systems - Review of Systems Able to Perform ROS?: Yes Comments:: 03/21/18 20:36 GENERAL/CONSTITUTIONAL: +Dizziness. +General weakness No fever or chills. HEAD, EYES, EARS, NOSE AND THROAT:+NEck pain. No change in vision. No ear pain or discharge. No sore throat. CARDIOVASCULAR: No chest pain or shortness of breath. RESPIRATORY: No cough, wheezing, or hemoptysis. GASTROINTESTINAL: No nausea, vomiting, diarrhea or constipation. GENITOURINARY: No dysuria, frequency, or change in urination. MUSCULOSKELETAL: No joint or muscle swelling or pain. No neck or back pain. SKIN: No rash NEUROLOGIC: No headache, vertigo, loss of consciousness, or change in strength/ sensation. ENDOCRINE: No increased thirst. No abnormal weight change. HEMATOLOGIC/LYMPHATIC: No anemia, easy bleeding, or history of blood clots. ALLERGIC/IMMUNOLOGIC: No hives or skin allergy. <Wayne Medeiros - Last Filed: 03/21/18 23:11> *Physical Exam - Vital Signs Last Vital Signs Temp Pulse Resp BP Pulse Ox 98.2 F 79 18 168/112 99 03/21/18 19:30 03/21/18 19:30 03/21/18 19:30 03/21/18 19:30 03/21/18 19:30 - Physical Exam Comments: 03/21/18 20:36 GENERAL: Awake, alert, and fully oriented, in no acute distress HEAD: No signs of trauma EYES: PERRLA, EOMI, sclera anicteric, conjunctiva clear ENT: Auricles normal inspection, hearing grossly normal, nares patent, oropharynx clear without exudates. Moist mucosa NECK: +Moderate tenderness and Tenderness to paraspinal muscles of the neck bilaterally without significant vertebral body tenderness. +Pain reproduced with flexion and extension of neck. No meningismus. supple, no lymphadenopathy, JVD, or masses LUNGS: Breath sounds equal, clear to auscultation bilaterally. No wheezes, and no crackles HEART: Regular rate and rhythm, normal S1 and S2, no murmurs, rubs or gallops ABDOMEN: Soft, nontender, normoactive bowel sounds. No guarding, no rebound. No masses EXTREMITIES: Normal range of motion, no edema. No clubbing or cyanosis. No cords, erythema, or tenderness NEUROLOGICAL: Cranial nerves II through XII grossly intact. Normal speech, normal gait SKIN: Warm, Dry, normal turgor, no rashes or lesions noted. <Wayne Medeiros - Last Filed: 03/21/18 23:11> ED Treatment Course - LABORATORY CBC & Chemistry Diagram: 03/21/18 20:30 03/21/18 20:38 <Wayne Medeiros - Last Filed: 03/21/18 23:11> - LABORATORY CBC & Chemistry Diagram: 03/21/18 20:30 03/21/18 20:38 <Rosy Lincoln - Last Filed: 03/22/18 03:24> Medical Decision Making - Medical Decision Making Documentation has been prepared under my direction and personally reviewed by me in its entirety. I attest that this documented accurately reflects all work, treatment, procedures and medical decision making performed by me. As noted above, this 53-year-old woman with a history of hypertension, currently not being treated because of multiple medication ALLERGIES, presents with history of noting very high blood pressure reading on her home monitor. Also, the patient has been having persistent lightheadedness and neck pain. Patient had been diagnosed with benign positional vertigo 2 months ago; although the vertigo has resolved, she has persistent lightheadedness. Of note , the patient has not yet filled prescription for meclizine given to her by her ENT doctor who diagnosed her positional vertigo. The patient has a history of cervical herniated disc and chronic neck pain. Exam as noted with blood pressure 168/112 and marked cervical paraspinal muscle spasm; she has no significant other physical findings. CBC and chemistry profile sent and patient given 30 mg Toradol IV for her neck pain. Laboratory evaluation notable for evidence of volume depletion: Patient normally has elevation of her white blood cell count; CBC shows elevation of white blood cell count as well as hemoglobin/hematocrit. Furthermore, prerenal azotemia suggested by BUN of 21 and creatinine 0.8 Patient given 500 mL bolus of normal saline. Results discussed with the patient. She states that her oral intake of fluids has been quite poor over the last few days. Patient's muscle spasm could easily be related to mild dehydration; labyrinthitis secondary to stones within the semicircular canal can also be related to volume depletion. This was discussed with the patient. Since the patient's PCP, Dr. Taylor has moved from the area and patient needs new physician, she asked for referral. The patient will be referred to Dr. Lewis for general medical care. Referral information provided for her. Meanwhile, the patient should drink plenty of fluids, use meclizine as needed and return to the ER should symptoms worsen. <Rosy iLncoln - Last Filed: 03/22/18 03:24> *DC/Admit/Observation/Transfer - Attestations Scribe Attestion: 03/21/18 20:36 Documentation prepared by Wayne Medeiros, acting as healthcare or medical for Rosy Lincoln MD. <Wayne Medeiros - Last Filed: 03/21/18 23:11> <Rosy Lincoln - Last Filed: 03/22/18 03:24> Diagnosis at time of Disposition: Hypertension Qualifiers: Hypertension type: essential hypertension Qualified Code(s): I10 - Essential ( primary) hypertension Benign positional vertigo Qualifiers: Laterality: unspecified laterality Qualified Code(s): H81.10 - Benign paroxysmal vertigo, unspecified ear - Discharge Dispostion Disposition: HOME Condition at time of disposition: Stable - Referrals Referrals: Jayla Lewis MD [Staff Physician] - - Patient Instructions Printed Discharge Instructions: High Blood Pressure Additional Instructions: Drink plenty of water Take meclizine as previously prescribed as needed for vertigo or dizziness Ibuprofen/naproxen/acetaminophen as needed for neck pain Follow-up with your ENT and neurology doctors as planned Follow-up with Dr. Lewis within the next week for blood pressure evaluation and possible treatment Return to ER if you have persistent lightheadedness/vertigo or experience chest pain/shortness of breath/palpitations - Post Discharge Activity
[2018-03-21 19:37] VITALS: TEMP 98.2; BMI 30.4
[2018-03-21] MEDS ORDERED: KETOROLAC TROMETHAMINE 30 MG/1 ML VIAL IVPUSH ONE (20:14)
[2018-03-21] MEDS ORDERED: KETOROLAC TROMETHAMINE 30 MG/1 ML VIAL ONE (20:19)
[2018-03-21 21:01] LABS: BASO % 2.3 % (0-2.0); EOS % 1.9 % (0-4.5); HEMATOCRIT 52.3 % (32.4-45.2); HEMOGLOBIN 17.7 GM/dl (10.7-15.3); LYMPH % 28.9 % (8-40); MCHC 33.9 g/dl (32.0-36.0); MEAN CELL VOLUME 88.5 fl (80-96); MEAN PLT VOLUME 8.5 fl (7.5-11.1); MONO % 4.4 % (3.8-10.2); NEUT % 62.5 % (42.8-82.8); PLATELET COUNT 380 K/MM3 (134-434); RDW 12.8 % (11.6-15.6)
[2018-03-21 21:04] LABS: ALBUMIN 3.9 g/dl (3.5-5.0); ALK PHOS 91 U/L (32-92); ANION GAP 9 (8-16); BILIRUBIN,TOTAL 0.5 mg/dl (0.2-1.0); BLOOD UREA NITROGEN 21 mg/dl (7-18); CALCIUM 9.8 mg/dl (8.4-10.2); CHLORIDE 104 mmol/L (98-107); CO2 26 mmol/L (22-28); CREATININE 0.8 mg/dl (0.6-1.3); GLUCOSE,RANDOM 100 mg/dl (74-106); POTASSIUM 4.1 mmol/L (3.5-5.1); SGOT/AST 19 U/L (10-42); SGPT/ALT 23 U/L (10-40); SODIUM 139 mmol/L (136-145); TOT PROT 6.8 g/dl (6.4-8.3)
[2018-03-21] MEDS ORDERED: SODIUM CHLORIDE 500 ML IV STA (21:09)
[2018-03-21 22:37] VITALS: BP 146/102; PULSE 66
[2018-03-21] MEDS ORDERED: MECLIZINE HCL 25 MG TABLET (FP) PO ONE (22:43)
[2018-03-21] MEDS ORDERED: MECLIZINE HCL 25 MG TABLET (FP) ONE (22:44)
== END 2018-03-21 23:17 | disposition home or self-care (01) ==
LOC: FER 19:24
PROC: 3E0333Z Introduction of Anti-inflammatory into Peripheral Vein, Percutaneous Approach (ICD-10-PCS; principal; 2018-03-21)
PROC: 3E0337Z Introduction of Electrolytic and Water Balance Substance into Peripheral Vein, Percutaneous Approach (ICD-10-PCS; 2018-03-21)
DX: H81.10 Benign paroxysmal vertigo, unspecified ear (principal); I10 Essential (primary) hypertension
CPT/HCPCS: 36415; 80053; 82550; 84484; 85025; 99283-25

== ENCOUNTER 2018-09-27 11:05 | Emergency (ER) | payer OTHER ==
[2018-09-27 11:42] VITALS: TEMP 98.5; BMI 33.4
[2018-09-27 11:45] LABS: PH,URINE 5.5 (4.5-8); URINE APPEARANCE Clear; URINE BILIRUBIN Negative (NEGATIVE); URINE COLOR Yellow; URINE GLUCOSE (UA) Negative (NEGATIVE); URINE KETONE Negative (NEGATIVE); URINE LEUK ESTERASE Negative (NEGATIVE); URINE NITRITE Negative (NEGATIVE); URINE PROTEIN Negative (NEGATIVE); URINE UROBILINOGEN 0.2 (0.2-1.0)
--- NOTE | 2018-09-27 12:09 | PDOC ---
Attending Attestation - Resident Resident Name: Jamil Natarajan - ED Attending Attestation I have performed the following: I have examined & evaluated the patient, The case was reviewed & discussed with the resident, I agree w/resident's findings & plan, Exceptions are as noted - HPI HPI: 09/27/18 13:08 agree with resident HPI - Physicial Exam PE: 09/27/18 13:09 agree with resident exam - Medical Decision Making 09/27/18 13:09 53yo F hx mmp including HTN, UTI, hematuria presents to the ED for resolved ammonia smell in the urine and ammonia taste in her mouth. Vitals with elevated BP on arrival, will recheck. Exam wnl. UA checked for infection, was negative. Basic labs with normal electrolytes but elevated hgb, consistent with dehydration. Pt is otherwise well appearing. Pt able to tolerate fluids PO, encouraged to drink plenty of fluids and f/u with her PMD within 1-2 days. Rpt BP 147/106. Pt has not taken BP medications today, will take them at home I discussed the physical exam findings, ancillary test results and final diagnoses with the patient. I answered all of the patient's questions. The patient was satisfied with the care received and felt comfortable with the discharge plan and treatment plan. The patient will call their primary care physician within 24 hours to arrange follow-up and will return to the Emergency Department with any new, persistent or worsening symptoms.
[2018-09-27 12:19] LABS: BASO % 1.1 % (0-2.0); EOS % 1.2 % (0-4.5); LYMPH % 26.6 % (8-40); MCH 29.6 pg (25.7-33.7); MCHC 33.3 g/dl (32.0-36.0); MEAN CELL VOLUME 89.1 fl (80-96); MEAN PLT VOLUME 7.8 fl (7.5-11.1); MONO % 6.8 % (3.8-10.2); NEUT % 64.3 % (42.8-82.8); PLATELET COUNT 388 K/MM3 (134-434); RBC 5.72 M/mm3 (3.60-5.2); RDW 12.9 % (11.6-15.6); WHITE BLOOD COUNT 11.9 K/mm3 (4.0-10.8)
[2018-09-27 12:36] LABS: EPI CELLS FEW /HPF; URINE BACTERIA NONE SEEN /hpf (NEGATIVE); URINE WBC 0-2 (0-5)
[2018-09-27 12:39] LABS: ALBUMIN 3.7 g/dl (3.4-5.0); ALK PHOS 98 U/L (45-117); ANION GAP 9 MMOL/L (8-16); BILIRUBIN,TOTAL 0.4 mg/dl (0.2-1); BLOOD UREA NITROGEN 14 mg/dl (7-18); CALCIUM 9.7 mg/dl (8.5-10); CHLORIDE 104 mmol/L (98-107); CO2 24 mmol/L (21-32); CREATININE 0.7 mg/dl (0.55-1.3); GLUCOSE,RANDOM 102 mg/dl (74-106); POTASSIUM 4.3 mmol/L (3.5-5.1); SGOT/AST 18 U/L (15-37); SGPT/ALT 22 U/L (13-61); SODIUM 137 mmol/L (136-145); TOT PROT 6.8 g/dl (6.4-8.2)
--- NOTE | 2018-09-27 12:45 | PDOC ---
History of Present Illness - General Chief Complaint: Urinary Problem Stated Complaint: URINE SMELLS Time Seen by Provider: 09/27/18 11:25 History Source: Patient Exam Limitations: No Limitations - History of Present Illness Initial Comments: 09/27/18 11:53 53 yo female pmh of HTN, UTI, hematuria (undiagnosed cause) and hysterectomy ( for cervical cancer) presents to the ED after smelling ammonia in her urine. Pt states for the last 3 days she has not been drinking much water because of a tooth ache and noticed her urine becoming more dark and concentrated but this morning the urine smelt like ammonia and now states she is tasting ammonia. Pt drank 3 bottles of water today and her urine was less concentrated, drum loader and unloader in color and did not smell ammonia in the urine but continues to have a strange ammonia taste in her mouth. Of note, pt is followed by Dr. Goncalves in Urology for 1 episode of unexplained hematuria 1 year ago (2 negative cystoscopies done ) has scheduled blood work, ab/pel CT and follow up appointment with Urology in 2 weeks. Pt denies changes in frequency or pain on urination, abdominal pain, new back pain, headaches, F/C/N/V. Past History - Past Medical History Allergies/Adverse Reactions: Allergies Allergy/AdvReac Type Severity Reaction Status Date / Time Penicillins Allergy Mild Verified 09/27/18 11:33 amlodipine Allergy Verified 09/27/18 11:33 amoxicillin Allergy Verified 09/27/18 11:33 clonidine Allergy Verified 09/27/18 11:33 diltiazem Allergy Verified 09/27/18 11:33 nebivolol HCl [From Bystolic] Allergy Verified 09/27/18 11:33 triamterene Allergy Verified 09/27/18 11:33 epinephrine AdvReac Severe Verified 09/27/18 11:33 lisinopril AdvReac Unknown Verified 09/27/18 11:33 Home Medications: Ambulatory Orders Diazepam [Valium] 2.5 mg PO ASDIR PRN 03/21/18 Anemia: No Asthma: No Cancer: No Cardiac Disorders: No CVA: No COPD: No CHF: No Dementia: No Diabetes: No GI Disorders: No Disorders: Yes (KIDNEY STONES,LITHOTRIPSY) HTN: Yes Hypercholesterolemia: No Kidney Stones: Yes Liver Disease: No Psychiatric Problems: Yes (ANXIETY) Seizures: No Thyroid Disease: No - Surgical History Cholecystectomy: Yes - Reproductive History Is Patient Now?: No - Suicide/Smoking/Psychosocial Hx Smoking History: Current every day smoker Have you smoked in the past 12 months: No Number of Cigarettes Smoked Daily: 15 Information on smoking cessation initiated: No 'Breaking Loose' booklet given: 01/18/18 Hx Alcohol Use: No Drug/Substance Use Hx: No Substance Use Type: None Review of Systems - Review of Systems Constitutional: No: Chills, Fever Respiratory: No: Shortness of Breath Cardiac (ROS): No: Chest Pain ABD/GI: Yes: Poor Fluid Intake. No: Constipated, Diarrhea, Nausea, Vomiting : No: Burning, Dysuria, Discharge, Frequency, Flank Pain, Hematuria (no visible blood), Pain, Urgency Musculoskeletal: No: Back Pain Integumentary: No: Rash Neurological: No: Headache, Paresthesia, Seizure, Ataxia, Dizziness *Physical Exam - Vital Signs Last Vital Signs Temp Pulse Resp BP Pulse Ox 98.5 F 100 H 18 155/116 H 98 09/27/18 11:25 09/27/18 11:25 09/27/18 11:25 09/27/18 11:25 09/27/18 11:25 - Physical Exam General Appearance: Yes: Nourished, Appropriately Dressed. No: Apparent Distress HEENT: positive: EOMI Respiratory/Chest: positive: Lungs Clear, Normal Breath Sounds. negative: Accessory Muscle Use, Crackles, Rhonchi, Wheezing Cardiovascular: positive: Regular Rhythm, S1, S2. negative: Edema, JVD, Murmur Vascular Pulses: Dorsalis-Pedis (R): 3+, Doralis-Pedis (L): 3+ Gastrointestinal/Abdominal: positive: Normal Bowel Sounds, Flat, Soft. negative : Pulsatile Mass, Distended, Guarding, Rebound, Tenderness Musculoskeletal: positive: Normal Inspection. negative: CVA Tenderness (R), CVA Tenderness (L) Extremity: positive: Normal Capillary Refill Integumentary: positive: Normal Color, Dry, Warm Neurologic: positive: Fully Oriented, Alert Moderate Sedation - Procedure Monitoring Vital Signs: Procedure Monitoring Vital Signs Temperature 98.5 F 09/27/18 11:25 Pulse Rate 100 H 09/27/18 11:25 Respiratory Rate 18 09/27/18 11:25 Blood Pressure 155/116 H 09/27/18 11:25 O2 Sat by Pulse Oximetry (%) 98 09/27/18 11:25 ED Treatment Course - LABORATORY CBC & Chemistry Diagram: 09/27/18 12:05 09/27/18 12:05 - ADDITIONAL ORDERS Additional order review: Laboratory Results 09/27/18 11:33 Urine Color Yellow Urine Appearance Clear Urine pH 5.5 Ur Specific [place] 1.020 Urine Protein Negative Urine Glucose (UA) Negative Urine Ketones Negative Urine Blood 2+ H Urine Nitrite Negative Urine Bilirubin Negative Urine Urobilinogen 0.2 Ur Leukocyte Esterase Negative Medical Decision Making - Medical Decision Making 09/27/18 12:56 53 yo female pmh of unexplained hematuria presents to the ED for 1 day of urine smelling like ammonia and tasting ammonia. Pt has Urology f/u with pending labs and ct, appointment in 2 weeks for further evaluation of hematuria. Vitals stable, repeat vitals improved, see note. CBC, CMP WNL and similar to past UA same as past UA with 2+ blood. Pt has follow up with Urology in 2 weeks Pt is not acutely ill, no signs of infection, no hx of seizures or reason to expect aura. Pt is safe for DC home. Instructed to increase water intake and follow up with PCP and Urology *DC/Admit/Observation/Transfer Diagnosis at time of Disposition: Hematuria Qualifiers: Hematuria type: unspecified type Qualified Code(s): R31.9 - Hematuria, unspecified - Discharge Dispostion Disposition: HOME Condition at time of disposition: Good Decision to Admit order: No - Referrals Referrals: Hillary Lora [Primary Care Provider] - - Patient Instructions Printed Discharge Instructions: DI for Hematuria Additional Instructions: Please make an appointment with your Primary doctor to discuss your concerns regarding the abnormal smell in your urine. Return to the ER for difficulty urinating, high fevers or inability to eat or drink. Thank you - Post Discharge Activity
[2018-09-27 13:11] VITALS: BP 147/106; PULSE 82
== END 2018-09-27 13:26 | disposition home or self-care (01) ==
LOC: FER 11:05
DX: R31.9 Hematuria, unspecified (principal); F17.210 Nicotine dependence, cigarettes, uncomplicated; F41.9 Anxiety disorder, unspecified; I10 Essential (primary) hypertension; Z85.41 Personal history of malignant neoplasm of cervix uteri
CPT/HCPCS: 36415; 80053; 81003; 81015; 85025; 87086; 99282-25

== ENCOUNTER 2018-12-22 17:19 | Emergency (ER) | payer OTHER ==
[2018-12-22 17:32] VITALS: TEMP 99; BMI 30.4
[2018-12-22 18:07] LABS: BASO % 1.6 % (0-2.0); EOS % 1.7 % (0-4.5); HEMATOCRIT 49.5 % (32.4-45.2); HEMOGLOBIN 16.8 GM/dl (10.7-15.3); MCHC 33.8 g/dl (32.0-36.0); MEAN CELL VOLUME 88.9 fl (80-96); MEAN PLT VOLUME 8.4 fl (7.5-11.1); NEUT % 58.7 % (42.8-82.8); PLATELET COUNT 371 K/MM3 (134-434); RBC 5.57 M/mm3 (3.60-5.2); RDW 12.6 % (11.6-15.6); WHITE BLOOD COUNT 13.1 K/mm3 (4.0-10.8)
[2018-12-22 18:18] LABS: ALBUMIN 3.7 g/dl (3.4-5.0); BILIRUBIN,TOTAL 0.3 mg/dl (0.2-1); CALCIUM 9.3 mg/dl (8.5-10); CREATININE 0.9 mg/dl (0.55-1.3); MAGNESIUM 2.1 mg/dL (1.8-2.4); POTASSIUM 4.3 mmol/L (3.5-5.1); TOT PROT 6.7 g/dl (6.4-8.2)
[2018-12-22 18:26] LABS: INR 1.03 (0.82-1.09); PROTHROMBIN TIME (PATIENT) 11.5 SEC (10.2-13.0)
--- NOTE | 2018-12-22 18:31 | PDOC ---
History of Present Illness - General Chief Complaint: Shortness of Breath Stated Complaint: sob Time Seen by Provider: 12/22/18 17:24 History Source: Patient Exam Limitations: No Limitations - History of Present Illness Initial Comments: 12/22/18 18:22 Patient is a 53F with history of HTN, tobacco abuse here today complaining of shortness of breath that onset sudden 45 minutes prior to arrival. She reports an associated "discomfort" that feels like a pressure on her chest. Denies fevers, chills, nausea, vomiting. Denies cough. Denies history of blood clots, leg swelling/pain, recent travel and estrogen use. Patient has had hysterectomy. Pain is worsened with exertion, better with rest. Currently not having pain. Patient states that she thinks it may be anxiety. Saw tea tree farmer and had normal echo 3 weeks ago. Took aspirn and valium at home. Past History - Past Medical History Allergies/Adverse Reactions: Allergies Allergy/AdvReac Type Severity Reaction Status Date / Time Penicillins Allergy Mild Verified 12/22/18 17:21 amlodipine Allergy Verified 12/22/18 17:21 amoxicillin Allergy Verified 12/22/18 17:21 clonidine Allergy Verified 12/22/18 17:21 diltiazem Allergy Verified 12/22/18 17:21 nebivolol HCl [From Bystolic] Allergy Verified 12/22/18 17:21 triamterene Allergy Verified 12/22/18 17:21 epinephrine AdvReac Severe Verified 12/22/18 17:21 lisinopril AdvReac Unknown Verified 12/22/18 17:21 Home Medications: Ambulatory Orders Diazepam [Valium] 5 mg PO ASDIR PRN 03/21/18 Aspirin [ASA -] 160 mg PO ONCE PRN 12/22/18 Anemia: No Asthma: No Cancer: No Cardiac Disorders: No CVA: No COPD: No CHF: No Dementia: No Diabetes: No GI Disorders: No Disorders: Yes (KIDNEY STONES,LITHOTRIPSY) HTN: Yes Hypercholesterolemia: No Kidney Stones: Yes Liver Disease: No Psychiatric Problems: Yes (ANXIETY) Seizures: No Thyroid Disease: No - Surgical History Cholecystectomy: Yes - Suicide/Smoking/Psychosocial Hx Smoking History: Current every day smoker Have you smoked in the past 12 months: Yes Number of Cigarettes Smoked Daily: 10 Information on smoking cessation initiated: No 'Breaking Loose' booklet given: 09/27/18 Hx Alcohol Use: No Drug/Substance Use Hx: No Substance Use Type: None Review of Systems - Review of Systems Able to Perform ROS?: Yes Comments:: 12/22/18 18:26 GENERAL/CONSTITUTIONAL: No fever or chills. No weakness. HEAD, EYES, EARS, NOSE AND THROAT: No change in vision. No sore throat. CARDIOVASCULAR: +chest pain +shortness of breath RESPIRATORY: No cough, wheezing, or hemoptysis. GASTROINTESTINAL: No nausea, vomiting, diarrhea or constipation. GENITOURINARY: No dysuria, frequency, or change in urination. MUSCULOSKELETAL: No joint or muscle swelling or pain. No neck or back pain. SKIN: No rash NEUROLOGIC: No headache, vertigo, loss of consciousness, or change in strength/ sensation. HEMATOLOGIC/LYMPHATIC: No anemia, easy bleeding, or history of blood clots. ALLERGIC/IMMUNOLOGIC: No hives or skin allergy. *Physical Exam - Vital Signs Last Vital Signs Temp Pulse Resp BP Pulse Ox 99 F 89 20 156/101 H 99 12/22/18 17:20 12/22/18 17:20 12/22/18 17:20 12/22/18 17:20 12/22/18 17:20 - Physical Exam Comments: 12/22/18 18:31 GENERAL: Awake, alert, and fully oriented, in no acute distress HEAD: No signs of trauma, normocephalic, atraumatic EYES: PERRLA, EOMI, sclera anicteric, conjunctiva clear ENT: Auricles normal inspection, hearing grossly normal, nares patent, oropharynx clear without exudates. Moist mucosa NECK: Normal ROM, supple, no lymphadenopathy, JVD, or masses LUNGS: No distress, speaks full sentences, clear to auscultation bilaterally HEART: Regular rate and rhythm, normal S1 and S2, no murmurs, rubs or gallops, peripheral pulses normal and equal bilaterally. ABDOMEN: Soft, nontender, normoactive bowel sounds. No guarding, no rebound. No masses EXTREMITIES: Normal inspection, Normal range of motion, no edema. No clubbing or cyanosis. NEUROLOGICAL: Cranial nerves II through XII grossly intact. Normal speech, normal gait, no focal sensorimotor deficits SKIN: Warm, Dry, normal turgor, no rashes or lesions noted. Heart Score/ECG Review - History History: Slightly suspicious - Electrocardiogram EKG: Normal - Age Age: 45-65 - Risk Factors Risk Factors Heart Score: Yes Hx Hypertension, Yes Hx Diabetes Based on the list above the patient has:: 1-2 risk factors - Troponin Troponin: </= normal limit - Score Heart Score - Total: 2 ED Treatment Course - LABORATORY CBC & Chemistry Diagram: 12/22/18 17:48 12/22/18 17:48 - ADDITIONAL ORDERS Additional order review: Laboratory Results 12/22/18 17:48 Sodium 136 Potassium 4.3 Chloride 104 Carbon Dioxide 23 Anion Gap 9 BUN 18 Creatinine 0.9 Est GFR (CKD-EPI)AfAm 84.61 Est GFR (CKD-EPI)NonAf 73.00 Random Glucose 125 H Calcium 9.3 Magnesium 2.1 Total Bilirubin 0.3 AST 21 ALT 21 Alkaline Phosphatase 101 Total Protein 6.7 Albumin 3.7 12/22/18 17:48 RBC 5.57 H MCV 88.9 MCHC 33.8 RDW 12.6 MPV 8.4 Neutrophils % 58.7 Lymphocytes % 32.0 Monocytes % 6.0 Eosinophils % 1.7 Basophils % 1.6 - RADIOLOGY Radiology Studies Ordered: Category Date Time Status CHEST PA & LAT [RAD] Stat Radiology 12/22/18 17:31 Taken Medical Decision Making - Medical Decision Making 12/22/18 18:33 Patient is 53F with history of HTN and smoking here today with shortness of breath and chest pain. Vitals normal and stable. DDx includes, but is not limited to: COPD, asthma, acs, arrhythmia, pneumonia. EKG shows NSR with rate of 81. No st elevations/depressions. Normal axis, normal intervals, no significant t wave abnormalities. CXR clear. CBC, CMP, trop normal. After shared decision making with patient, will do second trop and discharge if normal. Patient is low risk and has cardiology follow up. Signed out to night attending. *DC/Admit/Observation/Transfer Diagnosis at time of Disposition: Chest pain - Discharge Dispostion Condition at time of disposition: Stable - Referrals - Patient Instructions - Post Discharge Activity
[2018-12-22 20:51] VITALS: BP 143/100; PULSE 76
--- NOTE | 2018-12-22 21:11 | PDOC ---
*Physical Exam - Vital Signs Last Vital Signs Temp Pulse Resp BP Pulse Ox 99 F 76 76 H 143/100 97 12/22/18 17:20 12/22/18 20:50 12/22/18 20:50 12/22/18 20:50 12/22/18 20:50 ED Treatment Course - LABORATORY CBC & Chemistry Diagram: 12/22/18 17:48 12/22/18 17:48 - ADDITIONAL ORDERS Additional order review: Laboratory Results 12/22/18 12/22/18 12/22/18 20:30 17:48 17:48 PT with INR INR Sodium 136 Potassium 4.3 Chloride 104 Carbon Dioxide 23 Anion Gap 9 BUN 18 Creatinine 0.9 Est GFR (CKD-EPI)AfAm 84.61 Est GFR (CKD-EPI)NonAf 73.00 Random Glucose 125 H Calcium 9.3 Magnesium 2.1 Total Bilirubin 0.3 AST 21 ALT 21 Alkaline Phosphatase 101 Troponin I < 0.03 < 0.03 Total Protein 6.7 Albumin 3.7 12/22/18 17:48 PT with INR 11.5 INR 1.03 Sodium Potassium Chloride Carbon Dioxide Anion Gap BUN Creatinine Est GFR (CKD-EPI)AfAm Est GFR (CKD-EPI)NonAf Random Glucose Calcium Magnesium Total Bilirubin AST ALT Alkaline Phosphatase Troponin I Total Protein Albumin 12/22/18 17:48 RBC 5.57 H MCV 88.9 MCHC 33.8 RDW 12.6 MPV 8.4 Neutrophils % 58.7 Lymphocytes % 32.0 Monocytes % 6.0 Eosinophils % 1.7 Basophils % 1.6 Progress Note - Progress Note Progress Note: Care of this patient was transferred to [place] from 1900 hrs. from the medical residents and Dr. Velasquez. Patient is waiting for second troponin and if her second troponin is negative she will be discharged home. 21:00 she has second troponin was negative, patient has no further complaints. *DC/Admit/Observation/Transfer Diagnosis at time of Disposition: Chest pain - Discharge Dispostion Disposition: HOME Condition at time of disposition: Stable - Referrals - Patient Instructions Additional Instructions: Return to the emergency department immediately with ANY new, persistent or worsening symptoms. Continue any medications as previously prescribed by your physician. You should follow up with your primary doctor as soon as possible regarding today's emergency department visit. . Please make sure your doctor reviews the results of your emergency evaluation. Thank you for coming to the Emergency Department today for your care. It was a pleasure to see you today. Please note that your evaluation is INCOMPLETE until you follow-up with your doctor. - Post Discharge Activity
--- NOTE | 2018-12-23 17:19 | EKG ---
Test Reason : Blood Pressure : / mmHG Vent. Rate : 081 BPM Atrial Rate : 081 BPM P-R Int : 178 ms QRS Dur : 100 ms QT Int : 358 ms P-R-T Axes : 025 000 020 degrees QTc Int : 415 ms NORMAL SINUS RHYTHM CANNOT RULE OUT ANTERIOR INFARCT , AGE UNDETERMINED ABNORMAL ECG WHEN COMPARED WITH ECG OF 26-DEC-2016 06:56, NO SIGNIFICANT CHANGE WAS FOUND Confirmed by PATRICK CARRERO MD ([id number]) on 12/23/2018 5:19:16 PM Referred By: MD HOOPER Confirmed By:PATRICK CARRERO MD
== END 2018-12-22 21:22 | disposition home or self-care (01) ==
LOC: FER 17:19
DX: R07.9 Chest pain, unspecified (principal); R06.02 Shortness of breath; I10 Essential (primary) hypertension
CPT/HCPCS: 36415; 71046-TC-FY; 80053; 83735; 84484; 85025; 85610; 93005; 99283-25

== ENCOUNTER 2019-01-09 07:09 | Emergency (ER) | payer OTHER | END 2019-01-09 08:20 | disposition home or self-care (01) | LOC: FER 07:09 ==

== ENCOUNTER 2019-02-03 18:45 | Emergency (ER) | payer OTHER ==
[2019-02-03 19:13] VITALS: BP 156/109; PULSE 79; TEMP 98.6; BMI 30.4
[2019-02-03 20:32] LABS: BASO % 2.2 % (0-2.0); EOS % 1.5 % (0-4.5); HEMATOCRIT 48.9 % (32.4-45.2); HEMOGLOBIN 16.6 GM/dl (10.7-15.3); LYMPH % 29.9 % (8-40); MCH 30.2 pg (25.7-33.7); MONO % 6.8 % (3.8-10.2); NEUT % 59.6 % (42.8-82.8); PLATELET COUNT 344 K/MM3 (134-434); RBC 5.49 M/mm3 (3.60-5.2); RDW 12.7 % (11.6-15.6); WHITE BLOOD COUNT 14.1 K/mm3 (4.0-10.8)
[2019-02-03 20:46] LABS: ALBUMIN 3.6 g/dl (3.4-5.0); BILIRUBIN,TOTAL 0.5 mg/dl (0.2-1); CALCIUM 9.2 mg/dl (8.5-10); CREATININE 0.9 mg/dl (0.55-1.3); POTASSIUM 3.9 mmol/L (3.5-5.1); TOT PROT 6.5 g/dl (6.4-8.2)
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
--- NOTE | 2019-02-04 13:26 | EKG ---
Test Reason : Blood Pressure : / mmHG Vent. Rate : 062 BPM Atrial Rate : 062 BPM P-R Int : 186 ms QRS Dur : 100 ms QT Int : 400 ms P-R-T Axes : 032 008 033 degrees QTc Int : 406 ms SINUS RHYTHM WITH MARKED SINUS ARRHYTHMIA WHEN COMPARED WITH ECG OF 22-DEC-2018 18:13, NO SIGNIFICANT CHANGE WAS FOUND Confirmed by GREG ROGER MD ([id number]) on 02/04/2019 1:25:42 PM Referred By: DR MORRIS Confirmed By:GREG ROGER MD
== END 2019-02-03 21:13 | disposition home or self-care (01) ==
LOC: FER 18:45
DX: R07.89 Other chest pain (principal); F17.210 Nicotine dependence, cigarettes, uncomplicated; I10 Essential (primary) hypertension; F41.9 Anxiety disorder, unspecified
CPT/HCPCS: 36415; 80053; 82550; 84484; 85025; 93005; 99282-25

== ENCOUNTER 2019-07-17 07:53 | Inpatient (IN) | payer OTHER ==
[2019-07-17] MEDS ORDERED: ACETAMINOPHEN 325 MG TABLET (FP) PO ONE (08:07)
--- NOTE | 2019-07-17 08:08 | PDOC ---
History of Present Illness - General Chief Complaint: Chest Pain Stated Complaint: CHEST PAIN Time Seen by Provider: 07/17/19 08:07 History Source: Patient Exam Limitations: No Limitations - History of Present Illness Initial Comments: 07/17/19 08:08 HPI The patient is a 54 year old female, with a significant PMH of HTN and anxiety, endometrial ca s/p hysterectomy, cholecystecomy who presents to the emergency department with chest pain. Beginning 3AM today, pt endorses anterior/ substernal stabbing and sharp chest pain, nonradiating, exacerbating by breathing and lying supine, improved sitting up. tried tums/pepto bismal, ASA this morning - without relief associated with upper back and neck pain, unrelated to her chest pain similar pain earlier this week about 4 days ago, spontaneously resolved after 24 hours. +subjective fever and chills, +chest pain +cough x several weeks, productive white sputum, but no SOB. 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 Denies headache, diaphoresis, visual or hearing changes, sore throat, ear pain , SOB, palpitation, dizziness, weakness, N, V, D, abdominal pain, bladder and bowel problems, focal weakness/paresthesias, leg swelling/pain, rash. No sick contacts or travel. No new changes in medications, noncompliant with antihypertensives. Allergies: Penicillin, amlodipine, amoxicillin, clonidine, diltiazem, nebivolol , triamterene, epinephrine, lisinopril PMH: Severe hypertension (noncompliant with any medications due to side effects ) - not on meds. 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 No weakness HEENT: no headache or dizziness. No congestion. No visual/hearing disturbances. CVS: no syncope. +chest pain. +pleurisy Resp: +shortness of breath, +cough, +pleurisy Gastrointestinal: no abdominal pain, nausea, vomiting, diarrhea. Genitourinary: no urinary sx, hematuria. MUSCULOSKELETAL: No joint pain and swelling. No neck or back pain. SKIN: no redness or skin changes, no discharge, no rash. No wounds. Hematologic: no easy bruising/bleeding. NEUROLOGIC: No headache, dizziness, LOC or altered mental status. No weakness, numbness or tingling. Psych: no anxiety or depression Allergic/Immunologic: +medication allergies All other systems reviewed and negative, or as documented in HPI. Physical exam General: Well appearing, awake and alert, NAD. HEENT: NCAT, PERRL, EOMI, clear conjunctiva, anicteric, moist mucus membranes, clear oropharynx, no oral lesions.. bilateral T. M clear. Neck: neck supple, FROM, no lymphadenopathy Resp: CTAB, normal and even respirations, no respiratory distress CVS: mild tachycardia, no murmurs, 2+ peripheral pulses throughout, no peripheral edema Chest: anterior substernal chest wall TTP, no discoloration. Abdomen: soft, NTND, no rebound or guarding. obese abdomen Back: nontender, normal inspection and ROM MSK: no edema, KAPLAN x4, ROM intact. No clubbing or cyanosis. normal bulk and tone. Extremities: no calf tenderness Neuro: alert, oriented appropriately; no focal neurologic deficits Psych: Calm and cooperative Skin: warm and well perfused, cap refill <2 sec, normal color, no rash or skin discoloration. 07/17/19 10:05 07/17/19 11:14 07/17/19 12:05 Past History - Past Medical History Allergies/Adverse Reactions: Allergies Allergy/AdvReac Type Severity Reaction Status Date / Time Penicillins Allergy Mild Verified 07/17/19 07:58 amlodipine Allergy Verified 07/17/19 07:58 amoxicillin Allergy Verified 07/17/19 07:58 clonidine Allergy Verified 07/17/19 07:58 diltiazem Allergy Verified 07/17/19 07:58 nebivolol HCl [From Bystolic] Allergy Verified 07/17/19 07:58 triamterene Allergy Verified 07/17/19 07:58 epinephrine AdvReac Severe Verified 07/17/19 07:58 lisinopril AdvReac Unknown Verified 07/17/19 07:58 Home Medications: Ambulatory Orders Diazepam [Valium] 5 mg PO ASDIR PRN 03/21/18 Aspirin [ASA -] 160 mg PO ONCE PRN 12/22/18 Albuterol Sulfate Inhaler - [Ventolin HFA Inhaler -] 1 - 2 inh PO Q6H PRN #1 inhaler 01/09/19 Simethicone [Gas-X] 125 mg PO DAILY 02/03/19 Bismuth Subsalicylate [Pepto-Bismol -] 524 mg PO ONCE 07/17/19 Calcium Carbonate [Tums] 200 mg PO ONCE 07/17/19 Anemia: No Asthma: No Cancer: No Cardiac Disorders: No CVA: No COPD: No CHF: No Dementia: No Diabetes: Yes GI Disorders: No Disorders: Yes (KIDNEY STONES,LITHOTRIPSY) HTN: Yes Hypercholesterolemia: No Kidney Stones: Yes Liver Disease: No Psychiatric Problems: Yes (ANXIETY) Seizures: No Thyroid Disease: No - Surgical History Cholecystectomy: Yes - Psycho Social/Smoking Cessation Hx Smoking History: Current every day smoker Have you smoked in the past 12 months: Yes Number of Cigarettes Smoked Daily: 10 Information on smoking cessation initiated: Yes 'Breaking Loose' booklet given: 12/22/18 Hx Alcohol Use: No Drug/Substance Use Hx: No Substance Use Type: None *Physical Exam - Vital Signs Last Vital Signs Temp Pulse Resp BP Pulse Ox 100.1 F H 106 H 20 148/100 97 07/17/19 07:54 07/17/19 07:54 07/17/19 07:54 07/17/19 07:54 07/17/19 07:54 Procedures - Bedside Ultrasound Bedside Ultrasound: Cardiac Remarks: 07/17/19 10:57 POCUS echo and thoracic exam performed and documented/saved, indication includes chest pain/dyspnea. views obtained (PSLA, PSS, A4, SX, IVC, bilateral lung mckinley). Findings include normal EF on visual estimation, no pericardial or pleural effusion, primarily A lines, no FWMA, flat IVC with inspiratory collapse >50%. RV<LV. Impression: no acute findings, hypovolemia Heart Score/ECG Review #1 ECG reviewed & interpreted by me at: 08:15 General ECG Interpretation: Sinus Rhythm, Normal Rate, Normal Intervals 07/17/19 08:15 EKG normal sinus rhythm at 99 bpm, no interval abnormalities, narrow QRS, ST and T wave segments and morphology normal. Nonspecific T wave abnormalities SC depression in inferior leads, II, III, AVF and laterally I, V4-6 07/17/19 12:05 ED Treatment Course - LABORATORY CBC & Chemistry Diagram: 12/01/19 11:00 07/17/19 09:04 - RADIOLOGY Radiology Studies Ordered: Category Date Time Status CHEST PA & LAT [RAD] Stat Radiology 07/17/19 08:07 Ordered Radiograph Interpretation: 07/17/19 08:45 Chest x-ray reveals minimal degenerative changes and wedging, coarse lung findings, prominent sandra and unfolded aorta and normal heart, no evidence of cardiomegaly. Costophrenic angles are sharp and soft tissues are intact, no acute process is seen no focal consolidation or edema Medical Decision Making - Medical Decision Making 07/17/19 08:14 Vital Signs Temp Pulse Resp BP Pulse Ox 100.1 F H 106 H 20 148/100 97 07/17/19 07:54 07/17/19 07:54 07/17/19 07:54 07/17/19 07:54 07/17/19 07:54 Vital signs notable for low-grade fever 100.1, mild tachycardia. 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 EKG also with diffuse SC depressions in infero/lateral leads. analgesia with tylenol/toradol, IVF, reassess cxr with coarse breath sounds, no definitive consolidation or edema. normal heart. labs and lytes with acute on chronic leukocytosis, baseline fluctuant has been up to 18K, now 21K/ mildly hemoconcentrated and similar to prior results. 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 does have suspected infection, viral vs pericarditis vs early pna. remainder of labs/trops neg. influenza neg. bedside pocus echo wnl, normal EF, no effusion, b/l A lines, RV<LV, flat IVC, joni with hypovolemic state. given additional saline hydrating, rechecking cbc and trop 07/17/19 10:55 on reassessment - feels much better, cp down to 6/10, breathing better. VS improved, defervesced. tachy down. Ceftriaxone/azithromycin for pna coverage given severity of sx, fever. additional lactic and blood cultures drawn before abx, pending results additional analgesia for 6/10 chest pain, morphine; toradol improved sx significantly earlier 07/17/19 12:03 pt elects for admission for IV abx, treating pericarditis (more likely) vs early pneumonia, medical management, hydration and supportive care. pt and family made aware of impression and plan admitting to [facility] [place], s/o BREANA Omalley admitting to dr Arndt 07/17/19 12:24 07/17/19 12:38 Discharge - Discharge Information Problems reviewed: Yes Clinical Impression/Diagnosis: Febrile illness, acute Pericarditis Qualifiers: Pericarditis type: other type Chronicity: unspecified Qualified Code(s): I31.8 - Other specified diseases of pericardium Condition: Fair - Admission Yes - Follow up/Referral - Patient Discharge Instructions - Post Discharge Activity
[2019-07-17] MEDS ORDERED: ACETAMINOPHEN 325 MG TABLET (FP) ONE (08:33)
[2019-07-17] MEDS ORDERED: SODIUM CHLORIDE 1,000 ML IV STA (08:41)
[2019-07-17] MEDS ORDERED: KETOROLAC TROMETHAMINE 15 MG/ML VIAL IVPUSH ONE (09:13)
[2019-07-17] MEDS ORDERED: KETOROLAC TROMETHAMINE 15 MG/ML VIAL ONE (09:18)
[2019-07-17 09:36] LABS: HEMOGLOBIN 16.8 GM/dl (10.7-15.3); MCHC 32.9 g/dl (32.0-36.0); MEAN CELL VOLUME 91.2 fl (80-96); MEAN PLT VOLUME 8.4 fl (7.5-11.1); PLATELET COUNT 427 K/MM3 (134-434); RDW 12.1 % (11.6-15.6)
[2019-07-17 09:45] LABS: ALBUMIN 3.6 g/dl (3.4-5.0); BILIRUBIN,TOTAL 0.5 mg/dl (0.2-1); CALCIUM 9.4 mg/dl (8.5-10); CREATININE 0.8 mg/dl (0.55-1.3); POTASSIUM 4.5 mmol/L (3.5-5.1); TOT PROT 6.9 g/dl (6.4-8.2)
[2019-07-17 10:42] LABS: PLATELET ESTIMATE ADEQUATE; TOXIC GRANULATION OCCASIONAL
[2019-07-17] MEDS ORDERED: SODIUM CHLORIDE 0.9% 500 ML INFUS.BAG IV ONE (10:53)
[2019-07-17 11:27] LABS: BASO % 0.9 % (0-2.0); EOS % 0.1 % (0-4.5); HEMATOCRIT 46.7 % (32.4-45.2); HEMOGLOBIN 15.8 GM/dl (10.7-15.3); LYMPH % 12.4 % (8-40); MCH 30.7 pg (25.7-33.7); MCHC 33.9 g/dl (32.0-36.0); MEAN CELL VOLUME 90.4 fl (80-96); MEAN PLT VOLUME 8.3 fl (7.5-11.1); MONO % 2.5 % (3.8-10.2); NEUT % 84.1 % (42.8-82.8); PLATELET COUNT 366 K/MM3 (134-434); RBC 5.17 M/mm3 (3.60-5.2); RDW 12.1 % (11.6-15.6); WHITE BLOOD COUNT 21.6 K/mm3 (4.0-10.8)
[2019-07-17] MEDS ORDERED: CEFTRIAXONE 1,000 MG in DEXTROSE 5%-WATER - 50 ML IVPB ONE (11:33)
[2019-07-17] MEDS ORDERED: AZITHROMYCIN IVPB 500 MG in DEXTROSE 5%-WATER - 250 ML IVPB ONE (11:33)
[2019-07-17] MEDS ORDERED: AZITHROMYCIN 500 MG VIAL IVPB ONE (11:36)
[2019-07-17] MEDS ORDERED: cefTRIAXone SODIUM 1 GM VIAL ONE (11:36)
[2019-07-17] MEDS ORDERED: morphine CARPU-JECT 4 MG/1 ML DISP.SYRIN IVPUSH ONE (12:07)
[2019-07-17] MEDS ORDERED: morphine SULFATE 4 MG/ML VIAL ONE (12:25)
--- NOTE | 2019-07-17 13:46 | HP ---
CHIEF COMPLAINT:Chest pain PCP: HISTORY OF PRESENT ILLNESS: The patient is a 54 year old female, with a significant PMH of HTN and anxiety, endometrial ca s/p hysterectomy, cholecystecomy who presents to the emergency department with chest pain. Beginning earling morning day, c/o anterior/ substernal stabbing and sharp chest pain, nonradiating, exacerbating by breathing and lying supine, improved sitting up. tried tums/pepto bismal, ASA this morning. pt seen at bedside in ED, feels some relief after receiving Toradol. Pt was recently seen by her human resource professional at [facility], CT coronary angiography done in March 2019 with normal coronaries, small hiatal hernia noted; also unremarkable stress test. ER course was notable for: (1)WBC 21 (2)Trops neg x2 (3)Chest xray coarse findings Recent Travel: PAST MEDICAL HISTORY: HTN Anxiety hx of Endometrial ca PAST SURGICAL HISTORY: Hysterectomy Cholecystectomy Social History: Smokin/2 pack/day Alcohol:denies Drugs: denies Allergies Penicillins Allergy (Mild, Verified 07/17/19 07:58) "felt funny breathing" amlodipine Allergy (Verified 07/17/19 07:58) amoxicillin Allergy (Verified 07/17/19 07:58) clonidine Allergy (Verified 07/17/19 07:58) diltiazem Allergy (Verified 07/17/19 07:58) nebivolol HCl [From Bystolic] Allergy (Verified 07/17/19 07:58) triamterene Allergy (Verified 07/17/19 07:58) epinephrine Adverse Reaction (Severe, Verified 07/17/19 07:58) palpitations- lisinopril Adverse Reaction (Unknown, Verified 07/17/19 07:58) "heart beating slow"- will bring in list of 4 other bp meds she can not tolerate HOME MEDICATIONS: Home Medications Medication Instructions Recorded Diazepam [Valium] 5 mg PO ASDIR PRN 03/21/18 Aspirin [ASA -] 160 mg PO ONCE PRN 12/22/18 Albuterol Sulfate Inhaler - 1 - 2 inh PO Q6H PRN #1 inhaler 01/09/19 [Ventolin HFA Inhaler -] Simethicone [Gas-X] 125 mg PO DAILY 02/03/19 Bismuth Subsalicylate 524 mg PO ONCE 07/17/19 [Pepto-Bismol -] Calcium Carbonate [Tums] 200 mg PO ONCE 07/17/19 REVIEW OF SYSTEMS CONSTITUTIONAL: +Chills Absent: fever, diaphoresis, generalized weakness, malaise, loss of appetite, weight change HEENT: Absent: rhinorrhea, nasal congestion, throat pain, throat swelling, difficulty swallowing, mouth swelling, ear pain, eye pain, visual changes CARDIOVASCULAR: +chest pain Absent: chest pain, syncope, palpitations, irregular heart rate, lightheadedness , peripheral edema RESPIRATORY: +Cough, +SOB Absent: dyspnea with exertion, orthopnea, wheezing, stridor, hemoptysis GASTROINTESTINAL: Absent: abdominal pain, abdominal distension, nausea, vomiting, diarrhea, constipation, melena, hematochezia GENITOURINARY: Absent: dysuria, frequency, urgency, hesitancy, hematuria, flank pain, genital pain MUSCULOSKELETAL: Absent: myalgia, arthralgia, joint swelling, back pain, neck pain SKIN: Absent: rash, itching, pallor HEMATOLOGIC/IMMUNOLOGIC: Absent: easy bleeding, easy bruising, lymphadenopathy, frequent infections ENDOCRINE: Absent: unexplained weight gain, unexplained weight loss, heat intolerance, cold intolerance NEUROLOGIC: Absent: headache, focal weakness or paresthesias, dizziness, unsteady gait, seizure, mental status changes, bladder or bowel incontinence PSYCHIATRIC: Absent: anxiety, depression, suicidal or homicidal ideation, hallucinations. PHYSICAL EXAMINATION Vital Signs - 24 hr 07/17/19 07/17/19 07/17/19 07:54 11:02 13:21 Temperature 100.1 F H 98.9 F 98.6 F Pulse Rate 106 H Pulse Rate [ 83 84 Left Radial] Respiratory 20 18 18 Rate Blood Pressure 148/100 Blood Pressure 116/77 136/83 [Right Arm] O2 Sat by Pulse 97 98 97 Oximetry (%) GENERAL: Awake, alert, and fully oriented, in no acute distress. HEAD: Normal with no signs of trauma. EYES: Pupils equal, round and reactive to light, extraocular movements intact, sclera anicteric, conjunctiva clear. No lid lag. EARS, NOSE, THROAT: Ears normal, nares patent, oropharynx clear without exudates. Moist mucous membranes. NECK: Normal range of motion, supple without lymphadenopathy, JVD, or masses. LUNGS: Breath sounds equal, clear to auscultation bilaterally. No wheezes, and no crackles. No accessory muscle use. HEART: Regular rate and rhythm, normal S1 and S2 without murmur, rub or gallop. ABDOMEN: Soft, nontender, not distended, normoactive bowel sounds, no guarding, no rebound, no masses. No hepatomegaly or splenomegaly. MUSCULOSKELETAL: Normal range of motion at all joints. No bony deformities or tenderness. No CVA tenderness. UPPER EXTREMITIES: 2+ pulses, warm, well-perfused. No cyanosis. No clubbing. No peripheral edema. LOWER EXTREMITIES: 2+ pulses, warm, well-perfused. No calf tenderness. No peripheral edema. NEUROLOGICAL: Cranial nerves II-XII intact. Normal speech. Normal gait. PSYCHIATRIC: Cooperative. Good eye contact. Appropriate mood and affect. SKIN: Warm, dry, normal turgor, no rashes or lesions noted, normal capillary refill. Laboratory Results - last 24 hr 07/17/19 07/17/19 07/17/19 08:26 09:04 09:04 WBC 21.0 H RBC 5.60 H Hgb 16.8 H Hct 51.0 H MCV 91.2 MCH 30.0 MCHC 32.9 RDW 12.1 Plt Count 427 MPV 8.4 Absolute Neuts (auto) 18.1 Neutrophils % No Result Required. Neutrophils % (Manual) 82.0 Band Neutrophils % 3.0 Lymphocytes % No Result Required. Lymphocytes % (Manual) 8.0 Monocytes % Monocytes % (Manual) 5 Eosinophils % Basophils % Toxic Granulation Occasional Platelet Estimate Adequate Platelet Comment Rare giant plts Sodium 134 L Potassium 4.5 Chloride 104 Carbon Dioxide 20 L Anion Gap 10 BUN 12.0 Creatinine 0.8 Est GFR (CKD-EPI)AfAm 96.87 Est GFR (CKD-EPI)NonAf 83.58 Random Glucose 136 H Lactic Acid Calcium 9.4 Total Bilirubin 0.5 AST 15 ALT 20 Alkaline Phosphatase 86 Creatine Kinase Troponin I Total Protein 6.9 Albumin 3.6 Influenza A (Rapid) Negative Influenza B (Rapid) Negative 07/17/19 07/17/19 07/17/19 09:04 09:04 11:00 WBC 21.6 H RBC 5.17 Hgb 15.8 H Hct 46.7 H MCV 90.4 MCH 30.7 MCHC 33.9 RDW 12.1 Plt Count 366 MPV 8.3 Absolute Neuts (auto) 18.2 Neutrophils % 84.1 H Neutrophils % (Manual) Band Neutrophils % Lymphocytes % 12.4 Lymphocytes % (Manual) Monocytes % 2.5 L Monocytes % (Manual) Eosinophils % 0.1 Basophils % 0.9 Toxic Granulation Platelet Estimate Platelet Comment Sodium Potassium Chloride Carbon Dioxide Anion Gap BUN Creatinine Est GFR (CKD-EPI)AfAm Est GFR (CKD-EPI)NonAf Random Glucose Lactic Acid Calcium Total Bilirubin AST ALT Alkaline Phosphatase Creatine Kinase 49 Troponin I < 0.03 Total Protein Albumin Influenza A (Rapid) Influenza B (Rapid) 07/17/19 07/17/19 11:00 12:02 WBC RBC Hgb Hct MCV MCH MCHC RDW Plt Count MPV Absolute Neuts (auto) Neutrophils % Neutrophils % (Manual) Band Neutrophils % Lymphocytes % Lymphocytes % (Manual) Monocytes % Monocytes % (Manual) Eosinophils % Basophils % Toxic Granulation Platelet Estimate Platelet Comment Sodium Potassium Chloride Carbon Dioxide Anion Gap BUN Creatinine Est GFR (CKD-EPI)AfAm Est GFR (CKD-EPI)NonAf Random Glucose Lactic Acid 1.7 Calcium Total Bilirubin AST ALT Alkaline Phosphatase Creatine Kinase Troponin I < 0.03 Total Protein Albumin Influenza A (Rapid) Influenza B (Rapid) ASSESSMENT/PLAN: Steffanie Thomas is a 54 year old female, with a significant PMH of HTN and anxiety, endometrial ca s/p hysterectomy, cholecystecomy admitted for Admitting Diagnosis Pericarditis vs early PNA Chronic Conditions HTN Anxiety A/P: #Pericarditis vs early PNA -WBC 21, febrile 100.4 in ED -Lactic wnl -IVF -pain mgt- Toradol -IV rocephin (no reaction noted in ED), Azithro -EKG NSR -Trops neg x2 -blood cx in process -may benefit from colchine, -Echo done in ED- no effusion noted, normal LVEF -robitussin prn for cough #Leukocystosis, chronic -reviewed labs back to 2018, lowest 11.9 -today 21.0 -monitor WBC -associated with hx of of autoimmune/rheumatoid factor elevation causing chronic leukocytosis #HTN -multiple allergies to BP meds -low sodium diet #Tobacco use -declined nicotine patch -smoking cessation encouraged #Anxiety-stable -pt reports taking med sparingly -does not take frequently -will hold off ordering valium #hx of endometrial ca-s/p hysterectomy Full Code FEN Fluids: IVF Electrolytes: replete PRN Nutritions: low sodium diet Dispo: requires inpatient treatment Visit type - Emergency Visit Emergency Visit: Yes ED Registration Date: 07/17/19 Care time: The patient presented to the Emergency Department on the above date and was hospitalized for further evaluation of their emergent condition. - New Patient This patient is new to me today: Yes Date on this admission: 07/17/19 - Critical Care Critical Care patient: No
[2019-07-17] MEDS ORDERED: SODIUM CHLORIDE 1,000 ML IV SCH (14:00)
[2019-07-17 14:16] VITALS: BMI 38.0
[2019-07-17] MEDS ORDERED: guaiFENesin 200 MG/10 ML 10 ML UNIT-DOSE CUPS PO PRN (14:34)
[2019-07-17] MEDS: KETOROLAC TROMETHAMINE 15 MG/ML VIAL IVPUSH PRN ×2 (14:34→21:17)
[2019-07-17] MEDS: ACETAMINOPHEN 325 MG TABLET (FP) PO PRN ×2 (15:36→20:06)
[2019-07-17] MEDS ORDERED: ALBUTEROL SO4 0.083% IH SOL 2.5 MG/3 ML VIAL.NEB. NEB PRN (15:42)
[2019-07-17] MEDS: HEPARIN NA (PORCINE) 5,000 UNITS/ML 1ML VIAL SQ SCH (21:15)
--- NOTE | 2019-07-18 07:54 | PN ---
Physical Exam: SUBJECTIVE: Patient seen and examined; 10 sys ROS done and negative aside from HPI. No further CP, SOB. No O2 requirements. Pending final CT read. Less likely pericarditis (no diffuse ST, no rub, etc.). Pending pulm, ID, CV eval. Offering rheum eval given chronic leukocytosis with stated positive RA+ hx. OBJECTIVE: Vital Signs Period Temp Pulse Resp BP Sys/Hill Pulse Ox Last 24 Hr 98.3 F-101.3 F 77-105 17-19 112-136/63-83 94-98 GENERAL: The patient is awake, alert, and fully oriented, in no acute distress. HEAD: Normal with no signs of trauma. EYES: PERRL, extraocular movements intact, sclera anicteric, conjunctiva clear. No ptosis. ENT: Ears normal, nares patent, oropharynx clear without exudates, moist mucous membranes. NECK: Trachea midline, full range of motion, supple. LUNGS: Breath sounds equal, scattered wheezes with faint rales L>R, w/ sym exp HEART: Regular rate and rhythm, S1, S2 without murmur, rub or gallop. ABDOMEN: Soft, nontender, nondistended, normoactive bowel sounds, EXTREMITIES: 2+ pulses, warm, well-perfused, no edema. NEUROLOGICAL: Cranial nerves II through XII grossly intact. Normal speech, gait not observed. PSYCH: Normal mood, normal affect. SKIN: Warm, dry, normal turgor, no rashes or lesions noted Laboratory Results - last 24 hr 07/17/19 07/17/19 07/17/19 08:26 09:04 09:04 WBC 21.0 H RBC 5.60 H Hgb 16.8 H Hct 51.0 H MCV 91.2 MCH 30.0 MCHC 32.9 RDW 12.1 Plt Count 427 MPV 8.4 Absolute Neuts (auto) 18.1 Neutrophils % No Result Required. Neutrophils % (Manual) 82.0 Band Neutrophils % 3.0 Lymphocytes % No Result Required. Lymphocytes % (Manual) 8.0 Monocytes % Monocytes % (Manual) 5 Eosinophils % Basophils % Toxic Granulation Occasional Platelet Estimate Adequate Platelet Comment Rare giant plts Sodium 134 L Potassium 4.5 Chloride 104 Carbon Dioxide 20 L Anion Gap 10 BUN 12.0 Creatinine 0.8 Est GFR (CKD-EPI)AfAm 96.87 Est GFR (CKD-EPI)NonAf 83.58 Random Glucose 136 H Lactic Acid Calcium 9.4 Total Bilirubin 0.5 AST 15 ALT 20 Alkaline Phosphatase 86 Creatine Kinase Troponin I Total Protein 6.9 Albumin 3.6 Influenza A (Rapid) Negative Influenza B (Rapid) Negative 07/17/19 07/17/19 07/17/19 09:04 09:04 11:00 WBC 21.6 H RBC 5.17 Hgb 15.8 H Hct 46.7 H MCV 90.4 MCH 30.7 MCHC 33.9 RDW 12.1 Plt Count 366 MPV 8.3 Absolute Neuts (auto) 18.2 Neutrophils % 84.1 H Neutrophils % (Manual) Band Neutrophils % Lymphocytes % 12.4 Lymphocytes % (Manual) Monocytes % 2.5 L Monocytes % (Manual) Eosinophils % 0.1 Basophils % 0.9 Toxic Granulation Platelet Estimate Platelet Comment Sodium Potassium Chloride Carbon Dioxide Anion Gap BUN Creatinine Est GFR (CKD-EPI)AfAm Est GFR (CKD-EPI)NonAf Random Glucose Lactic Acid Calcium Total Bilirubin AST ALT Alkaline Phosphatase Creatine Kinase 49 Troponin I < 0.03 Total Protein Albumin Influenza A (Rapid) Influenza B (Rapid) 07/17/19 07/17/19 11:00 12:02 WBC RBC Hgb Hct MCV MCH MCHC RDW Plt Count MPV Absolute Neuts (auto) Neutrophils % Neutrophils % (Manual) Band Neutrophils % Lymphocytes % Lymphocytes % (Manual) Monocytes % Monocytes % (Manual) Eosinophils % Basophils % Toxic Granulation Platelet Estimate Platelet Comment Sodium Potassium Chloride Carbon Dioxide Anion Gap BUN Creatinine Est GFR (CKD-EPI)AfAm Est GFR (CKD-EPI)NonAf Random Glucose Lactic Acid 1.7 Calcium Total Bilirubin AST ALT Alkaline Phosphatase Creatine Kinase Troponin I < 0.03 Total Protein Albumin Influenza A (Rapid) Influenza B (Rapid) Active Medications Generic Name Dose Route Start Last Admin Trade Name Freq PRN Reason Stop Dose Admin Acetaminophen 650 mg 07/17/19 14:43 07/17/19 20:06 Tylenol - PO 650 mg Q6H PRN Administration FEVER Albuterol Sulfate 1 amp 07/17/19 15:42 Ventolin 0.083% Nebulizer Soln - NEB Q6H PRN SHORT OF BREATH/WHEEZING Guaifenesin 10 ml 07/17/19 14:34 07/17/19 16:36 Robitussin - PO 10 ml Q4H PRN Administration COUGH Heparin Sodium (Porcine) 5,000 unit 07/17/19 22:00 07/17/19 21:15 Heparin - SQ 5,000 unit BID PINKY Administration Sodium Chloride 1,000 mls @ 75 mls/hr 07/17/19 14:00 07/17/19 14:34 Normal Saline - IV 75 mls/hr ASDIR PINKY Administration Azithromycin 500 mg in 250 mls @ 250 mls/hr 07/18/19 10:00 Zithromax 500mg Ivpb (Pre-Docked) IVPB DAILY [facility] Ceftriaxone Sodium 1 gm/ 50 mls @ 100 mls/hr 07/18/19 10:00 Dextrose IVPB DAILY [facility] Protocol Ketorolac Tromethamine 15 mg 07/17/19 13:47 07/17/19 21:17 Toradol Injection - IVPUSH 07/22/19 13:46 15 mg Q6H PRN Administration PAIN LEVEL 4 - 6 EKG reviewed Tele reviewed CXR reviewed CT pending final read Echo pending ASSESSMENT/PLAN: Presents with atypical CP (resolved) with concerns of pericarditis (less likely based on clinical picture). Likely underlying COPD. R/O pleurisy associated with PNA (would be CAP-QTc OK). No home PFTs, no home process control specialist. Chronic leukocytosis and stated RF+; checking and will offer rheum consult with Dr. James. She declined steroids and scheduled nebs for likely underlying COPD and has albuterol available at home that is not used up and within expiry. Problems include: -Atypical CP, resolved. Less likely ACS, pericarditis. Consider pleurisy. Incentive carlos. Declinmes further tele. Not reproducible. FU echo. CE's negative. -Likely CAP; FU final CT read. -Morbid Obesity (BMI >35; counseled) -Tobacco Abuse (Counsled) -Stated RA+ (checking ESR CRP GARETT RF; OFFERED RHEUM CONSULT) -Likely COPD (Has home albuterol available but doesn't like using it; needs OP PFTs. Declined steroid tx. FU final pulm recs) -R/O PHONG -R/O Pickwickian Syndrome Full Code Visit type - Emergency Visit Emergency Visit: Yes ED Registration Date: 07/17/19 Care time: The patient presented to the Emergency Department on the above date and was hospitalized for further evaluation of their emergent condition. - New Patient This patient is new to me today: No - Critical Care Critical Care patient: No
[2019-07-18 08:17] LABS: BASO % 0.5 % (0-2.0); EOS % 1.7 % (0-4.5); HEMATOCRIT 44.9 % (32.4-45.2); HEMOGLOBIN 15.3 GM/dl (10.7-15.3); LYMPH % 20.2 % (8-40); MCH 30.8 pg (25.7-33.7); MCHC 34.1 g/dl (32.0-36.0); MEAN CELL VOLUME 90.2 fl (80-96); MEAN PLT VOLUME 8.3 fl (7.5-11.1); MONO % 6.3 % (3.8-10.2); NEUT % 71.3 % (42.8-82.8); PLATELET COUNT 312 K/MM3 (134-434); RBC 4.98 M/mm3 (3.60-5.2); WHITE BLOOD COUNT 15.4 K/mm3 (4.0-10.8)
[2019-07-18 08:20] LABS: ALBUMIN 2.9 g/dl (3.4-5.0); BILIRUBIN,TOTAL 0.8 mg/dl (0.2-1); CALCIUM 8.2 mg/dl (8.5-10); CREATININE 0.7 mg/dl (0.55-1.3); POTASSIUM 4.1 mmol/L (3.5-5.1); TOT PROT 5.8 g/dl (6.4-8.2)
[2019-07-18] MEDS: ALBUTEROL SO4 2.5/IPRATROPIUM 0.5 INH SOL 3 ML VIAL.NEB. NEB SCH ×3 (09:03→17:24)
[2019-07-18] MEDS ORDERED: CEFTRIAXONE 1 G/50 ML PREMIX 50 ML IVPB SCH (10:00)
[2019-07-18] MEDS ORDERED: AZITHROMYCIN IVPB 500 MG/250 ML BAG IVPB SCH (10:00)
[2019-07-18 10:01] LABS: N-TERMINAL BNP 848.6 pg/ml (5-125)
[2019-07-18] MEDS: predniSONE 20 MG TABLET (UD) PO SCH ×2 (10:52→11:09)
[2019-07-18] MEDS: HEPARIN NA (PORCINE) 5,000 UNITS/ML 1ML VIAL SQ SCH (10:53)
--- NOTE | 2019-07-18 11:55 | CON.CARD ---
Consult Consult Specialty:: Cardiology Reason for Consultation:: chest pain - History of Present Illness History of Present Illness: The patient is a 54 year old female, with a significant PMH of HTN and anxiety, endometrial ca s/p hysterectomy, cholecystecomy who presents to the emergency department with chest pain. Beginning earling morning day, c/o anterior/ substernal stabbing and sharp chest pain, nonradiating, exacerbating by breathing and lying supine, improved sitting up. tried tums/pepto bismal, ASA this morning. pt seen at bedside in ED, feels some relief after receiving Toradol. Pt was recently seen by her senior mechanical design engineer at [facility], CT coronary angiography done in March 2019 with normal coronaries, small hiatal hernia noted; also unremarkable stress test. ER course was notable for: (1)WBC 21 (2)Trops neg x2 (3)Chest xray coarse findings Recent Travel: PAST MEDICAL HISTORY: HTN Anxiety hx of Endometrial ca hiatal hernia CTA at [facility] 2018 - normal CAC score 0, report reviewed no mentions about PAST SURGICAL HISTORY: Hysterectomy Cholecystectomy Social History: Smokin/2 pack/day Alcohol:denies Drugs: denies - History Source History Provided By: Patient, Medical Record - Past Medical History Cardio/Vascular: Yes: HTN ...LMP: 05/02/15 - Alcohol/Substance Use Hx Alcohol Use: No - Smoking History Smoking history: Current every day smoker Have you smoked in the past 12 months: Yes Aproximately how many cigarettes per day: 10 Home Medications - Allergies Allergies/Adverse Reactions: Allergies Allergy/AdvReac Type Severity Reaction Status Date / Time Penicillins Allergy Mild Verified 07/17/19 07:58 amlodipine Allergy Verified 07/17/19 07:58 amoxicillin Allergy Verified 07/17/19 07:58 clonidine Allergy Verified 07/17/19 07:58 diltiazem Allergy Verified 07/17/19 07:58 nebivolol HCl [From Bystolic] Allergy Verified 07/17/19 07:58 triamterene Allergy Verified 07/17/19 07:58 epinephrine AdvReac Severe Verified 07/17/19 07:58 lisinopril AdvReac Unknown Verified 07/17/19 07:58 - Home Medications Home Medications: Ambulatory Orders Diazepam [Valium] 5 mg PO ASDIR PRN 03/21/18 Aspirin [ASA -] 160 mg PO ONCE PRN 12/22/18 Albuterol Sulfate Inhaler - [Ventolin HFA Inhaler -] 1 - 2 inh PO Q6H PRN #1 inhaler 01/09/19 Simethicone [Gas-X] 125 mg PO DAILY 02/03/19 Bismuth Subsalicylate [Pepto-Bismol -] 524 mg PO ONCE 07/17/19 Calcium Carbonate [Tums] 200 mg PO ONCE 07/17/19 Review of Systems - Review of Systems Constitutional: reports: No Symptoms Eyes: reports: No Symptoms HENT: reports: No Symptoms Neck: reports: No Symptoms Cardiovascular: reports: Chest Pain Respiratory: reports: No Symptoms Gastrointestinal: reports: No Symptoms Genitourinary: reports: No Symptoms Breasts: reports: No Symptoms Reported Musculoskeletal: reports: No Symptoms Integumentary: reports: No Symptoms Neurological: reports: No Symptoms Endocrine: reports: No Symptoms Hematology/Lymphatic: reports: No Symptoms Psychiatric: reports: No Symptoms Vital Signs: Vital Signs Temperature 98.7 F 07/18/19 10:00 Pulse Rate 77 07/18/19 10:00 Respiratory Rate 18 07/18/19 10:00 Blood Pressure 131/79 07/18/19 10:00 O2 Sat by Pulse Oximetry (%) 97 07/18/19 10:00 Constitutional: Yes: Well Nourished, No Distress, Calm Eyes: Yes: WNL, Conjunctiva Clear, EOM Intact HENT: Yes: WNL, Atraumatic, Normocephalic Neck: Yes: WNL, Supple, Trachea Midline Respiratory: Yes: WNL, Regular, CTA Bilaterally Gastrointestinal: Yes: WNL, Normal Bowel Sounds Renal/: Yes: WNL Cardiovascular: Yes: WNL, Regular Rate and Rhythm Musculoskeletal: Yes: WNL Extremities: Yes: WNL Integumentary: Yes: WNL Neurological: Yes: WNL, Alert, Oriented ...Motor Strength: WNL Psychiatric: Yes: WNL, Alert, Oriented - Other Data Labs, Other Data: CBC, BMP 07/18/19 07:05 07/18/19 07:05 Troponin, BNP 07/18/19 08:57 Troponin I < 0.02 B-Natriuretic Peptide 848.6 H Troponin, BNP 07/18/19 08:57 Troponin I < 0.02 B-Natriuretic Peptide 848.6 H Imaging - Results Chest X-ray: Image Reviewed (no i/e) EKG: Image Reviewed (sr old ant septal SD) Problem List - Problems (1) Febrile illness, acute Code(s): R50.9 - FEVER, UNSPECIFIED (2) Pericarditis Code(s): I31.9 - DISEASE OF PERICARDIUM, UNSPECIFIED Qualifiers: Pericarditis type: other type Chronicity: unspecified Qualified Code(s): I31.8 - Other specified diseases of pericardium (3) Abdominal pain Code(s): R10.9 - UNSPECIFIED ABDOMINAL PAIN (4) Allergic bronchitis Code(s): J45.909 - UNSPECIFIED ASTHMA, UNCOMPLICATED Qualifiers: Asthma severity: unspecified severity Asthma complication type: with acute exacerbation Qualified Code(s): J45.901 - Unspecified asthma with (acute) exacerbation (5) Allergic rhinitis Code(s): J30.9 - ALLERGIC RHINITIS, UNSPECIFIED (6) Asymptomatic microscopic hematuria Code(s): R31.21 - ASYMPTOMATIC MICROSCOPIC HEMATURIA (7) Atypical chest pain Code(s): R07.89 - OTHER CHEST PAIN (8) Benign positional vertigo Code(s): H81.10 - BENIGN PAROXYSMAL VERTIGO, UNSPECIFIED EAR Qualifiers: Laterality: unspecified laterality Qualified Code(s): H81.10 - Benign paroxysmal vertigo, unspecified ear (9) Bronchitis Code(s): J40 - BRONCHITIS, NOT SPECIFIED ACUTE OR CHRONIC (10) Cellulitis Code(s): L03.90 - CELLULITIS, UNSPECIFIED (11) Chest pain Code(s): R07.9 - CHEST PAIN, UNSPECIFIED Qualifiers: Chest pain type: other chest pain Qualified Code(s): R07.89 - Other chest pain; R07.8 - Other chest pain (12) Cough Code(s): R05 - COUGH (13) Cyst Code(s): [id number] - (14) Hematuria Code(s): R31.9 - HEMATURIA, UNSPECIFIED Qualifiers: Hematuria type: unspecified type Qualified Code(s): R31.9 - Hematuria, unspecified (15) Hypertension Code(s): I10 - ESSENTIAL (PRIMARY) HYPERTENSION Qualifiers: Hypertension type: essential hypertension Qualified Code(s): I10 - Essential (primary) hypertension (16) Left leg paresthesias Code(s): R20.2 - PARESTHESIA OF SKIN (17) Post-operative infection Code(s): T81.4XXA - Qualifiers: Encounter type: initial encounter (18) Scalp contusion Code(s): S00.03XA - CONTUSION OF SCALP, INITIAL ENCOUNTER (19) Shortness of breath Code(s): R06.02 - SHORTNESS OF BREATH (20) Shoulder pain, left Code(s): M25.512 - PAIN IN LEFT SHOULDER Qualifiers: Chronicity: acute Qualified Code(s): M25.512 - Pain in left shoulder (21) Tooth abscess Code(s): K04.7 - PERIAPICAL ABSCESS WITHOUT SINUS (22) Viral pharyngitis Code(s): J02.9 - ACUTE PHARYNGITIS, UNSPECIFIED (23) Viral syndrome Code(s): B34.9 - VIRAL INFECTION, UNSPECIFIED Assessment/Plan CHF -elevated BNP COPD exacorbation leucocytosis HTN Anxiety hx of Endometrial ca hiatal hernia CTA at [facility] 2018 - normal CAC score 0, Plan Lasix 20 mg PO QD lipids echo telemetry ABX DVT plx Pulmionary eval
--- NOTE | 2019-07-18 11:57 | EKG ---
Test Reason : Blood Pressure : / mmHG Vent. Rate : 077 BPM Atrial Rate : 077 BPM P-R Int : 182 ms QRS Dur : 106 ms QT Int : 378 ms P-R-T Axes : 023 011 043 degrees QTc Int : 427 ms NORMAL SINUS RHYTHM ANTERIOR INFARCT , AGE UNDETERMINED ABNORMAL ECG WHEN COMPARED WITH ECG OF 17-JUL-2019 08:15, NO SIGNIFICANT CHANGE WAS FOUND Confirmed by LUCIE LAZO MD ([id number]) on 07/18/2019 11:57:38 AM Referred By: JEVON MARIE Confirmed By:LUCIE LAZO MD
--- NOTE | 2019-07-18 11:57 | EKG ---
Test Reason : Blood Pressure : / mmHG Vent. Rate : 099 BPM Atrial Rate : 099 BPM P-R Int : 166 ms QRS Dur : 092 ms QT Int : 328 ms P-R-T Axes : 003 -07 037 degrees QTc Int : 420 ms NORMAL SINUS RHYTHM NORMAL ECG WHEN COMPARED WITH ECG OF 03-FEB-2019 19:30, VENT. RATE HAS INCREASED BY 37 BPM Confirmed by LUCIE LAZO MD ([id number]) on 07/18/2019 11:57:42 AM Referred By: NETTIE HAYWOOD Confirmed By:LUCIE LAZO MD
[2019-07-18] MEDS ORDERED: FUROSEMIDE 20 MG TABLET (FP) PO SCH (12:15)
--- NOTE | 2019-07-18 13:09 | CON.PULM ---
Consult Consult Specialty:: PULMONARY Referred by:: PMD Reason for Consultation:: COUGH/RESOVED CP - History of Present Illness Chief Complaint: COUGH History of Present Illness: The patient is a 54 year old female, with a significant PMH of HTN and anxiety, endometrial ca s/p hysterectomy, cholecystecomy who presents to the emergency department with chest pain. Beginning earling morning day, c/o anterior/ substernal stabbing and sharp chest pain, nonradiating, exacerbating by breathing and lying supine, improved sitting up. tried tums/pepto bismal, ASA this morning. 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 No: AFIB Pulmonary: Yes: COPD Gastrointestinal: No: Ascites Hepatobiliary: No: Cirrhosis Renal/: No: Renal Failure Reproductive: No: Ectopic ...LMP: 05/02/15 ...: No - Alcohol/Substance Use Hx Alcohol Use: No - Smoking History Smoking history: Current every day smoker Have you smoked in the past 12 months: Yes Aproximately how many cigarettes per day: 10 Home Medications - Allergies Allergies/Adverse Reactions: Allergies Allergy/AdvReac Type Severity Reaction Status Date / Time Penicillins Allergy Mild Verified 07/17/19 07:58 amlodipine Allergy Verified 07/17/19 07:58 amoxicillin Allergy Verified 07/17/19 07:58 clonidine Allergy Verified 07/17/19 07:58 diltiazem Allergy Verified 07/17/19 07:58 nebivolol HCl [From Bystolic] Allergy Verified 07/17/19 07:58 triamterene Allergy Verified 07/17/19 07:58 epinephrine AdvReac Severe Verified 07/17/19 07:58 lisinopril AdvReac Unknown Verified 07/17/19 07:58 - Home Medications Home Medications: Ambulatory Orders Diazepam [Valium] 5 mg PO ASDIR PRN 03/21/18 Aspirin [ASA -] 160 mg PO ONCE PRN 12/22/18 Albuterol Sulfate Inhaler - [Ventolin HFA Inhaler -] 1 - 2 inh PO Q6H PRN #1 inhaler 05/26/19 Simethicone [Gas-X] 125 mg PO DAILY 02/03/19 Bismuth Subsalicylate [Pepto-Bismol -] 524 mg PO ONCE 07/17/19 Calcium Carbonate [Tums] 200 mg PO ONCE 07/17/19 Family Medical History Family History: Unable to Obtain Review of Systems - Review of Systems Constitutional: reports: Fever Eyes: denies: Blurred Vision HENT: denies: Difficult Swallowing Neck: denies: Decreased ROM Cardiovascular: reports: Chest Pain Respiratory: reports: Cough, SOB. denies: Exercise Intolerance, Hemoptysis, SOB on Exertion, Wheezing Gastrointestinal: denies: Abdominal Pain Genitourinary: denies: Burning Physical Exam Vital Sings: Vital Signs Temperature 98.7 F 07/18/19 10:00 Pulse Rate 77 07/18/19 10:00 Respiratory Rate 18 07/18/19 10:00 Blood Pressure 131/79 07/18/19 10:00 O2 Sat by Pulse Oximetry (%) 97 07/18/19 10:00 Constitutional: Yes: Calm Eyes: Yes: EOM Intact HENT: Yes: Normocephalic Neck: Yes: Trachea Midline Cardiovascular: Yes: Regular Rate and Rhythm Respiratory: Yes: Rales (AT LEFT BASE) ...Inspection: Yes: WNL Gastrointestinal: Yes: Normal Bowel Sounds Edema: No Labs: CBC, BMP 07/18/19 07:05 07/18/19 07:05 REST REVIEWED Imaging - Results Chest X-ray: Report Reviewed, Image Reviewed Cat Scan: Report Reviewed, Image Reviewed Problem List - Problems (1) Pneumonia Code(s): J18.9 - PNEUMONIA, UNSPECIFIED ORGANISM (2) Cough Code(s): R05 - COUGH (3) Hypertension Code(s): I10 - ESSENTIAL (PRIMARY) HYPERTENSION Qualifiers: Hypertension type: essential hypertension Qualified Code(s): I10 - Essential (primary) hypertension Assessment/Plan COPD ACTIVE SMOKER LEFT BASE INFILTRATE ENDOMETRIAL CA S/P HYSTERECTOMY NL CTA CARDIAC 03/2019 DISCHARGE PLANNING WITH ORAL ANTIBIOTICS SMOKING CESSATION REFUSING MOST TREATMENT SINCE ADMISSION Sofya LYNCH MD
[2019-07-18 13:58] VITALS: BP 124/66; PULSE 80; TEMP 99.5
--- NOTE | 2019-07-18 14:35 | CON.ID ---
Consult Consult Specialty:: infectious diseases Referred by:: Reason for Consultation:: pneumonia - History of Present Illness Chief Complaint: cough,sob History of Present Illness: 54 year old female, with a significant PMH of HTN and anxiety, endometrial ca s /p hysterectomy, cholecystecomy who got admitted to the hospital because of stabbing chest pain. according to the patient she felt like there was a knife in her chest. 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 No: AFIB Pulmonary: Yes: COPD Gastrointestinal: No: Ascites Hepatobiliary: No: Cirrhosis Renal/: No: Renal Failure ...LMP: 05/02/15 ...: No - Alcohol/Substance Use Hx Alcohol Use: No - Smoking History Smoking history: Current every day smoker Have you smoked in the past 12 months: Yes Aproximately how many cigarettes per day: 10 Home Medications - Allergies Allergies/Adverse Reactions: Allergies Allergy/AdvReac Type Severity Reaction Status Date / Time Penicillins Allergy Mild Verified 07/17/19 07:58 amlodipine Allergy Verified 07/17/19 07:58 amoxicillin Allergy Verified 07/17/19 07:58 clonidine Allergy Verified 07/17/19 07:58 diltiazem Allergy Verified 07/17/19 07:58 nebivolol HCl [From Bystolic] Allergy Verified 07/17/19 07:58 triamterene Allergy Verified 07/17/19 07:58 epinephrine AdvReac Severe Verified 07/17/19 07:58 lisinopril AdvReac Unknown Verified 07/17/19 07:58 - Home Medications Home Medications: Ambulatory Orders Diazepam [Valium] 5 mg PO ASDIR PRN 03/21/18 Aspirin [ASA -] 160 mg PO ONCE PRN 12/22/18 Albuterol Sulfate Inhaler - [Ventolin HFA Inhaler -] 1 - 2 inh PO Q6H PRN #1 inhaler 01/09/19 Simethicone [Gas-X] 125 mg PO DAILY 02/03/19 Bismuth Subsalicylate [Pepto-Bismol -] 524 mg PO ONCE 07/17/19 Calcium Carbonate [Tums] 200 mg PO ONCE 07/17/19 Review of Systems - Review of Systems Constitutional: reports: Fever Eyes: reports: No Symptoms HENT: reports: No Symptoms Neck: reports: No Symptoms Cardiovascular: reports: Chest Pain Respiratory: reports: Cough, SOB, Other Gastrointestinal: reports: No Symptoms Genitourinary: reports: No Symptoms Musculoskeletal: reports: No Symptoms Integumentary: reports: No Symptoms Neurological: reports: No Symptoms Endocrine: reports: No Symptoms Hematology/Lymphatic: reports: No Symptoms Psychiatric: reports: No Symptoms Physical Exam Vital Signs: Vital Signs Temperature 99.5 F 07/18/19 13:57 Pulse Rate 80 07/18/19 13:57 Respiratory Rate 19 07/18/19 13:57 Blood Pressure 124/66 07/18/19 13:57 O2 Sat by Pulse Oximetry (%) 95 07/18/19 13:57 Constitutional: Yes: Well Nourished, No Distress, Calm, Obese Eyes: Yes: Conjunctiva Clear HENT: Yes: Atraumatic, Normocephalic Neck: Yes: Supple, Trachea Midline Cardiovascular: Yes: Regular Rate and Rhythm Respiratory: Yes: Regular, Poor Air Entry (bases) Gastrointestinal: Yes: Normal Bowel Sounds, Soft Musculoskeletal: Yes: WNL Extremities: Yes: WNL Neurological: Yes: Alert, Oriented Psychiatric: Yes: Alert, Oriented Labs: CBC, BMP 07/18/19 07:05 07/18/19 07:05 Imaging - Results Chest X-ray: Report Reviewed, Image Reviewed Cat Scan: Report Reviewed, Image Reviewed Assessment/Plan Problem List - Problems (1) Pneumonia Code(s): J18.9 - PNEUMONIA, UNSPECIFIED ORGANISM (2) Cough Code(s): R05 - COUGH (3) Hypertension Code(s): I10 - ESSENTIAL (PRIMARY) HYPERTENSION Qualifiers: Hypertension type: essential hypertension Qualified Code(s): I10 - Essential (primary) hypertension smoker plan continue current abx sputum cx pending echo being done rest as per the team
--- NOTE | 2019-07-18 15:35 | ECHO ---
Name: MOE KU Exam:Adult Echocardiogram Study Date: 07/18/2019 03:00 PM Age: 54 yrs Reason For Study: Pericarditis Height: 69 in Weight: 251 lb BSA: 2.3 m2 MMode/2D Measurements & Calculations IVSd: 1.2 cm Ao root diam: 3.0 cm LVIDd: 4.8 cm LA dimension: 3.5 cm LVIDs: 2.9 cm LVPWd: 0.99 cm EDV(Teich): 108.3 ml LVOT diam: 2.0 cm ESV(Teich): 32.3 ml Doppler Measurements & Calculations MV E max arcelia: 91.5 cm/sec MV A max arcelia: 100.8 cm/sec MV dec slope: 446.3 cm/sec2 MV E/A: 0.91 Ao V2 max: 170.1 cm/sec LV V1 max P.0 mmHg Ao max P.6 mmHg LV V1 max: 132.6 cm/sec TREY(V,D): 2.4 cm2 MR max arcelia: 353.3 cm/sec PA V2 max: 116.5 cm/sec MR max P.9 mmHg PA max P.4 mmHg PI end-d arcelia: 106.0 cm/sec Procedure A complete two-dimensional transthoracic echocardiogram was performed (2D, M-mode, Doppler and color flow Doppler). Left Ventricle The left ventricle is normal in size. There is mild concentric left ventricular hypertrophy. Left ariadne tricular systolic function is normal. Ejection Fraction = 60-65%. No regional wall motion abnormalities noted. Right Ventricle The right ventricle is normal size. The right ventricular systolic function is normal. Atria The left atrial size is normal. Right atrial size is normal. Mitral Valve The mitral valve is normal in structure and function. There is mild mitral regurgitation. Tricuspid Valve The tricuspid valve is normal in structure and function. There is mild tricuspid regurgitation. Aortic Valve The aortic valve is normal in structure and function. No aortic regurgitation is present. Pulmonic Valve The pulmonic valve is not well visualized. Great Vessels The aortic root is normal size. Pericardium/Pleura There is no pericardial effusion. Interpretation Summary The left ventricle is normal in size. Left ventricular systolic function is normal. No regional wall motion abnormalities noted. Ejection Fraction = 60-65%. There is mild concentric left ventricular hypertrophy. The right ventricular systolic function is normal. The left atrial size is normal. Right atrial size is normal. There is mild mitral regurgitation. There is mild tricuspid regurgitation. There is no pericardial effusion. Loki Mary MD 07/18/2019 03:35 PM
--- NOTE | 2019-07-18 18:12 | DS ---
Physical Exam: SUBJECTIVE: Patient seen and examined; please see my progress note for full problem list. In essence, this patient has completely imporved and reached maximum benefit for this hospitalization. They are stable and have no acute issues on the echo or telemetry noted. Followup as documented in DC instructions. No further CP, SOB resolved with no need for O2. No excessive secretions. She declined steroids. Declined rheum eval. Knows she has to stop smoking and was counseled; followup with pulmonary. She declined ABG for pickwickian screening. 10 sys ROS done and negative aside from HPI OBJECTIVE: Vital Signs Period Temp Pulse Resp BP Sys/Hill Pulse Ox Last 24 Hr 98.3 F-100.1 F 77-80 17-19 112-131/63-79 94-97 Please refer to today's progress note for PE results. LABS Laboratory Results - last 24 hr 07/18/19 07/18/19 07/18/19 02:55 07:05 07:05 WBC 15.4 H RBC 4.98 Hgb 15.3 Hct 44.9 MCV 90.2 MCH 30.8 MCHC 34.1 RDW 12.0 Plt Count 312 MPV 8.3 Absolute Neuts (auto) 10.9 Neutrophils % 71.3 Lymphocytes % 20.2 Monocytes % 6.3 Eosinophils % 1.7 Basophils % 0.5 ESR Sodium 135 L Potassium 4.1 Chloride 106 Carbon Dioxide 21 Anion Gap 8 BUN 9.0 Creatinine 0.7 Est GFR (CKD-EPI)AfAm 113.84 Est GFR (CKD-EPI)NonAf 98.23 Random Glucose 106 Calcium 8.2 L Magnesium 2.0 Total Bilirubin 0.8 AST 12 L ALT 16 Alkaline Phosphatase 69 D Creatine Kinase Troponin I C-Reactive Protein B-Natriuretic Peptide Total Protein 5.8 L Albumin 2.9 L Rheumatoid Factor Adenovirus (PCR) Cancelled Human Metapneumovir PCR Cancelled Influenza A (H1) PCR Cancelled Influenza B (RT-PCR) Cancelled Parainfluenza 1 (PCR) Cancelled Parainfluenza 2 (PCR) Cancelled Parainfluenza 3 (PCR) Cancelled RSV Type A (PCR) Cancelled RSV Type B (PCR) Cancelled Rhinovirus (PCR) Cancelled 07/18/19 07/18/19 07/18/19 08:57 08:57 08:57 WBC RBC Hgb Hct MCV MCH MCHC RDW Plt Count MPV Absolute Neuts (auto) Neutrophils % Lymphocytes % Monocytes % Eosinophils % Basophils % ESR 37 H Sodium Potassium Chloride Carbon Dioxide Anion Gap BUN Creatinine Est GFR (CKD-EPI)AfAm Est GFR (CKD-EPI)NonAf Random Glucose Calcium Magnesium Total Bilirubin AST ALT Alkaline Phosphatase Creatine Kinase Cancelled 88 Troponin I Cancelled < 0.02 C-Reactive Protein 16.4 H B-Natriuretic Peptide 848.6 H Total Protein Albumin Rheumatoid Factor Adenovirus (PCR) Human Metapneumovir PCR Influenza A (H1) PCR Influenza B (RT-PCR) Parainfluenza 1 (PCR) Parainfluenza 2 (PCR) Parainfluenza 3 (PCR) RSV Type A (PCR) RSV Type B (PCR) Rhinovirus (PCR) 07/18/19 08:57 WBC RBC Hgb Hct MCV MCH MCHC RDW Plt Count MPV Absolute Neuts (auto) Neutrophils % Lymphocytes % Monocytes % Eosinophils % Basophils % ESR Sodium Potassium Chloride Carbon Dioxide Anion Gap BUN Creatinine Est GFR (CKD-EPI)AfAm Est GFR (CKD-EPI)NonAf Random Glucose Calcium Magnesium Total Bilirubin AST ALT Alkaline Phosphatase Creatine Kinase Troponin I C-Reactive Protein B-Natriuretic Peptide Total Protein Albumin Rheumatoid Factor 77.0 H Adenovirus (PCR) Human Metapneumovir PCR Influenza A (H1) PCR Influenza B (RT-PCR) Parainfluenza 1 (PCR) Parainfluenza 2 (PCR) Parainfluenza 3 (PCR) RSV Type A (PCR) RSV Type B (PCR) Rhinovirus (PCR) HOSPITAL COURSE: Date of Admission:07/17/19 Date of Discharge: 07/18/19 Admitted for atypical chest pain. Was found to have no electrical abnormalities on tele or EKG with negative troponin and complete resolution of symptoms. Possible pneumonia on CT. She is stable with no underlying ongoing symptoms and requests to be discharged and has no medical contraindications to doing so provided she follows up with the appropriate specialties. She will be DCd on abx as described and may followup with indicated consulting services. 10 sys ROS done and negative aside from HPI Problem list per progress note. Minutes to complete discharge: 30 Discharge Summary Problems reviewed: Yes Reason For Visit: PERICARDITIS Current Active Problems Febrile illness, acute (Acute) Pericarditis (Acute) Pneumonia (Acute) Condition: Improved - Instructions Diet, Activity, Other Instructions: You were seen for chest pain that is likely pleuritic and secondary to pneumonia which is likely based on the results of your CAT scan. You have likely an underlying diagnosis of COPD and should use PRN handheld albuterol when SOB. You are being referred to pulmonary as an outpatient for further testing Please complete the antibiotics as prescribed. PRN Albuterol for SOB You declined steroids-if you would like to reevaluate this please call your PCP You should return to the ER if you have Chest Pain or Shortness of Breath. 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 Diet: Resume home diet Activity: Resume home activity Followup: -Dr. Mckeon: 2-4 weeks -PCP 3-5 days -Dr. Lizarraga/Sánchez within 1 month You should stop smoking and were counseled as such. Referrals: Munir Lizarraga MD [Staff Physician] - Disposition: HOME - Home Medications Comprehensive Discharge Medication List: Ambulatory Orders Diazepam [Valium] 5 mg PO ASDIR PRN 03/21/18 Aspirin [ASA -] 160 mg PO ONCE PRN 12/22/18 Albuterol Sulfate Inhaler - [Ventolin HFA Inhaler -] 1 - 2 inh PO Q6H PRN #1 inhaler 01/09/19 Simethicone [Gas-X] 125 mg PO DAILY 02/03/19 Bismuth Subsalicylate [Pepto-Bismol -] 524 mg PO ONCE 07/17/19 Calcium Carbonate [Tums] 200 mg PO ONCE 07/17/19 Azithromycin [Zithromax 250mg Tablets -] 250 mg PO DAILY 3 Days #3 tab 07/18/19 Cefuroxime Axetil [Ceftin -] 500 mg PO Q12H 7 Days #14 tablet 07/18/19 This patient is new to me today: Yes Date on this admission: 07/18/19 Emergency Visit: No Critical Care patient: No - Discharge Referral Referred to [facility] No
== END 2019-07-18 18:13 | disposition home or self-care (01) | DRG 139 ==
LOC: FER 07:53 → FM/S 12:46
PROVIDERS: ATTEND Nurse Practitioner Family
DX: J18.9 Pneumonia, unspecified organism (principal); R07.89 Other chest pain; F41.9 Anxiety disorder, unspecified; F17.210 Nicotine dependence, cigarettes, uncomplicated; D72.829 Elevated white blood cell count, unspecified; K44.9 Diaphragmatic hernia without obstruction or gangrene; R50.9 Fever, unspecified; R10.9 Unspecified abdominal pain; R05 Cough; J44.9 Chronic obstructive pulmonary disease, unspecified; I11.0 Hypertensive heart disease with heart failure; I50.9 Heart failure, unspecified; Z85.42 Personal history of malignant neoplasm of other parts of uterus
CPT/HCPCS: 36415; 71046-TC-FY; 71250-TC; 80053; 82550; 83605; 83735; 83880; 84484; 85025; 85651; 86038; 86140; 86431; 87040; 87070; 87205; 87804; 87899; 93005; 93306-TC; 99283-25; J1644; J7030

== ENCOUNTER 2019-07-20 14:42 | Inpatient (IN) | payer OTHER ==
--- NOTE | 2019-07-20 14:45 | PDOC ---
History of Present Illness - General Chief Complaint: Pain Stated Complaint: CHEST TIGHTNESS AND SHORT OF BREATH Time Seen by Provider: 07/20/19 14:44 History Source: Patient Exam Limitations: No Limitations - History of Present Illness Initial Comments: 07/20/19 15:09 Steffanie Thomas is a 54yF w PMHx HTN, endometrial CA s/p resection, recent PNA presenting w chest pain and SOB. This morning, woke up w midsternal chest pain radiating to chest emily, better sitting up and leaning forward, worse w palpation. Associated fevers/chills, white sputum productive cough, SOB. Took advil at 1pm without pain relief. Was d/c from hospital 2d ago for similar symptoms attributed to pleuritic chest pain 2/2 PNA. Echo on 07/18/19 showed normal EF, mild LVH. Has been continuing to take prescribed azithromycin and ceftriaxone for PNA. Denies past PE, nausea/vomiting, extremity swelling. Past History - Past Medical History Allergies/Adverse Reactions: Allergies Allergy/AdvReac Type Severity Reaction Status Date / Time Penicillins Allergy Mild Verified 07/20/19 14:50 amlodipine Allergy Verified 07/20/19 14:50 amoxicillin Allergy Verified 07/20/19 14:50 clonidine Allergy Verified 07/20/19 14:50 diltiazem Allergy Verified 07/20/19 14:50 nebivolol HCl [From Bystolic] Allergy Verified 07/20/19 14:50 triamterene Allergy Verified 07/20/19 14:50 epinephrine AdvReac Severe Verified 07/20/19 14:50 lisinopril AdvReac Unknown Verified 07/20/19 14:50 Home Medications: Ambulatory Orders Diazepam [Valium] 5 mg PO ASDIR PRN 03/21/18 Aspirin [ASA -] 160 mg PO ONCE PRN 12/22/18 Albuterol Sulfate Inhaler - [Ventolin HFA Inhaler -] 1 - 2 inh PO Q6H PRN #1 inhaler 01/09/19 Simethicone [Gas-X] 125 mg PO DAILY 02/03/19 Bismuth Subsalicylate [Pepto-Bismol -] 524 mg PO PRN 07/17/19 Calcium Carbonate [Tums] 200 mg PO PRN 07/17/19 Azithromycin [Zithromax 250mg Tablets -] 250 mg PO DAILY 3 Days #3 tab 07/18/19 Cefuroxime Axetil [Ceftin -] 500 mg PO Q12H 7 Days #14 tablet 07/18/19 Anemia: No Asthma: No Cancer: No Cardiac Disorders: No CVA: No COPD: No CHF: No Dementia: No Diabetes: Yes GI Disorders: No Disorders: Yes (KIDNEY STONES,LITHOTRIPSY) HTN: Yes Hypercholesterolemia: No Kidney Stones: Yes Liver Disease: No Psychiatric Problems: Yes (ANXIETY) Seizures: No Thyroid Disease: No - Surgical History Cholecystectomy: Yes - Psycho Social/Smoking Cessation Hx Smoking History: Current every day smoker Have you smoked in the past 12 months: Yes Number of Cigarettes Smoked Daily: 10 'Breaking Loose' booklet given: 12/22/18 Hx Alcohol Use: No Drug/Substance Use Hx: No Substance Use Type: None Review of Systems - Review of Systems Able to Perform ROS?: Yes Constitutional: Yes: Chills, Fever HEENTM: No: Eye Pain, Recent change in vision Respiratory: Yes: Cough, Shortness of Breath Cardiac (ROS): Yes: Chest Pain. No: Edema, Lightheadedness, Palpitations ABD/GI: No: Abdominal Distended, Constipated, Diarrhea, Nausea, Vomiting : No: Burning, Dysuria, Frequency Musculoskeletal: No: Back Pain, Joint Pain, Joint Swelling Integumentary: No: Bruising, Dryness, Erythema Neurological: No: Headache, Seizure, Tingling, Tremors Psychiatric: No: Anxiety, Depression Endocrine: No: Excessive Sweating, Flushing, Intolerance to Cold, Intolerance to Heat Hematologic/Lymphatic: No: Anemia, Blood Clots *Physical Exam - Physical Exam General Appearance: Yes: Nourished, Appropriately Dressed, Moderate Distress HEENT: positive: EOMI, AP, Normal Voice, Hearing Grossly Normal. negative: Scleral Icterus (R), Scleral Icterus (L), Nasal Congestion, Rhinorrhea Respiratory/Chest: positive: Chest Tender (mild tenderness to palpation midsternal, L/R anterior chest), Decreased Breath Sounds (d/t poor inspiratory effort), Crackles (intermittent crackles emily lung bases). negative: Accessory Muscle Use, Rhonchi, Stridor, Wheezing Cardiovascular: positive: Regular Rhythm, Regular Rate, S1, S2. negative: Edema , Murmur Extremity: positive: Normal Capillary Refill. negative: Swelling Integumentary: positive: Normal Color. negative: Petechiae, Rash Neurologic: positive: police booking officer II-XII NML intact, Fully Oriented, Alert, Normal Mood/ Affect, Normal Response, Responsive. negative: Confused, Disoriented ED Treatment Course - LABORATORY CBC & Chemistry Diagram: 07/20/19 15:10 07/20/19 15:10 Medical Decision Making - Medical Decision Making 07/20/19 15:17 CBC CMP trop d-dimer EKG showed NSR, HR 89, QTc 411, no ST changes CXR showed emily lung markings and questionable R mid periphery increased density unchanged from 07/17/19 CTA showed rule out PE tylenol, 15 toradol, pepcid, maalox, cefuroxime WBC 24, neg trop, ddimer 715 --- Steffanie Thomas is a 54yF w PMHx HTN, endometrial CA s/p resection, recent PNA presenting w 1d midsternal chest pain and SOB. O2sat wnl breathing RA. Likely pleuritic chest pain 2/2 PNA (leukocytosis, CXR findings). Pending CTA to rule out PE. Low concern for COPD (no wheezing) vs ACS (neg trop, NSR EKG). Given tylenol, 15 toradol, pepcid, maalox for pain without much relief, cefuroxime for PNA. Admitting to med/surg for PNA failing outpatient therapy, intractable chest pain. Pending CTA r/o PE Signed out to night team. Discharge - Discharge Information Problems reviewed: Yes Clinical Impression/Diagnosis: Chest pain Qualifiers: Chest pain type: unspecified Qualified Code(s): R07.9 - Chest pain, unspecified Pneumonia Qualifiers: Pneumonia type: due to unspecified organism Laterality: unspecified laterality Lung location: unspecified part of lung Qualified Code(s): J18.9 - Pneumonia, unspecified organism Condition: Stable - Follow up/Referral - Patient Discharge Instructions - Post Discharge Activity
[2019-07-20] MEDS ORDERED: IBUPROFEN 400 MG TABLET (FP) PO ONE ×2 (15:00→15:07)
[2019-07-20 15:01] VITALS: BMI 38.0
[2019-07-20] MEDS ORDERED: ACETAMINOPHEN 1000 MG/100 ML VIAL (NON FORMULARY) IVPB ONE (15:15)
[2019-07-20] MEDS ORDERED: ACETAMINOPHEN INJECTION 100 ML IVPB ONE (15:19)
[2019-07-20 15:22] LABS: HEMATOCRIT 47.3 % (32.4-45.2); HEMOGLOBIN 16.1 GM/dl (10.7-15.3); MCH 30.5 pg (25.7-33.7); MCHC 34.1 g/dl (32.0-36.0); MEAN CELL VOLUME 89.5 fl (80-96); MEAN PLT VOLUME 7.8 fl (7.5-11.1); PLATELET COUNT 438 K/MM3 (134-434); RBC 5.29 M/mm3 (3.60-5.2); RDW 12.2 % (11.6-15.6); WHITE BLOOD COUNT 24.1 K/mm3 (4.0-10.8)
[2019-07-20 15:37] LABS: ALBUMIN 3.2 g/dl (3.4-5.0); BILIRUBIN,TOTAL 0.3 mg/dl (0.2-1); CALCIUM 8.8 mg/dl (8.5-10); CREATININE 0.9 mg/dl (0.55-1.3); TOT PROT 6.3 g/dl (6.4-8.2)
[2019-07-20 15:54] LABS: PLATELET ESTIMATE SLT INCREASE
--- NOTE | 2019-07-20 16:21 | PDOC ---
Attending Attestation - Resident Resident Name: Dre Goff - ED Attending Attestation I have performed the following: I have examined & evaluated the patient, The case was reviewed & discussed with the resident, I agree w/resident's findings & plan, Exceptions are as noted - HPI HPI: 07/20/19 16:16 54 F with h/o HTN, endometrial CA s/p resection, recent admission for PNA presenting to ED with chest pain. Pt states that since her discharge from the hospital 2 days ago, she had been feeling better. However, today, her chest pain recurred. Pt describes sharp stabbing pain in the middle of her chest worse with deep inspiration. Denies SOB. Denies leg swelling or calf pain. Pt notes that this is the same pain she had whens he was admitted. Pt reports compliance with the antibiotics she was sent home with but has only taken motrin once for pain today at 1pm. - Physicial Exam PE: 07/20/19 16:18 "GENERAL: Awake, alert, and fully oriented, in no acute distress. HEAD: No signs of trauma EYES: PERRLA, EOMI, sclera anicteric, conjunctiva clear ENT: Auricles normal inspection, hearing grossly normal, nares patent, oropharynx clear without exudates. Moist mucosa NECK: Nontender, no stepoffs, Normal ROM, supple, no lymphadenopathy, JVD, or masses LUNGS: Breath sounds equal, clear to auscultation bilaterally. No wheezes, and no crackles HEART: Regular rate and rhythm, normal S1 and S2, no murmurs, rubs or gallops ABDOMEN: Soft, nontender, normoactive bowel sounds. No guarding, no rebound. No masses EXTREMITIES: Normal range of motion, no edema. No clubbing or cyanosis. No cords, erythema, or tenderness NEUROLOGICAL: Cranial nerves II through XII intact. 5/5 strength and sensation in all extremities, Normal speech, normal gait, normal cerebellar function SKIN: Warm, Dry, normal turgor, no rashes or lesions noted. - Medical Decision Making 07/20/19 16:18 54 F with recently diagnosed PNA, returning to ED for pleuritic chest pain and fever. Will evaluate for worsening PNA. ALso consider PE given h/o malignancy and pleuritic chest pain. EKG shows no ischemic changes. ? diagnosis of pericarditis, but no ST elevations or OH depressions on EKG. - Labs, trop, ddimer - CXR - Tylenol - IV abx - Admit
[2019-07-20] MEDS ORDERED: KETOROLAC TROMETHAMINE 30 MG/1 ML VIAL IVPUSH ONE (16:29)
[2019-07-20] MEDS ORDERED: KETOROLAC TROMETHAMINE 15 MG/ML VIAL ONE (16:50)
[2019-07-20] MEDS ORDERED: FAMOTIDINE 20 MG/50 ML IVPB 20 MG/50 ML MG IVPB ONE ×2 (17:33→17:51)
[2019-07-20] MEDS ORDERED: CEFUROXIME AXETIL 500 MG TABLET PO ONE (17:33)
[2019-07-20] MEDS ORDERED: AZITHROMYCIN 250 MG TABLET PO ONE (17:33)
[2019-07-20] MEDS ORDERED: MAG HYDROX/AL HYDROX/SIMETH -MYLANTA- ORAL SUSPENSION PO ONE (17:33)
[2019-07-20] MEDS ORDERED: CEFUROXIME AXETIL 500 MG TABLET ONE (17:51)
[2019-07-20] MEDS ORDERED: MAG HYDROX/AL HYDROX/SIMETH 30 ML UNIT-DOSE CUP ONE (17:51)
[2019-07-20] MEDS ORDERED: HYDROmorphone HCL CARPU-JECT 1 MG/1 ML DISP.SYRIN IVPUSH ONE (19:25)
[2019-07-20] MEDS ORDERED: HYDROmorphone HCL CARPU-JECT 1 MG/1 ML DISP.SYRIN ONE (19:31)
--- NOTE | 2019-07-20 20:57 | HP ---
CHIEF COMPLAINT: Chest pain PCP: None Pulmonology: Dr. Alfreda Scott, [facility] Hematology: HISTORY OF PRESENT ILLNESS: 54 year-old female with a PMH significant for HTN, COPD, kidney stones, endometrial cancer s/p hysterectomy x 4 years, and anxiety. Patient was seen in [facility] ED on 07/17/19 when she presented with chest pain, fever 101.3, WBC 21k. Treated for community-acquired pneumoniaand discharged on 07/18/19 on ceftriaxone and azithromycin. Patient returned to the ED today with complaint of recurrence of the same type of chest pain. The pain started at 1pm today and persists at the time of this admission 9 hours later. The pain is stabbing, constant, 10/10. Nothing makes it better, coughing and deep inspiration makes it worse. Patient endorses sweats and chills for several months. She denies n/v/ d/c. Denies symptoms of UTI. Denies worsening SOB from baseline, ZHAO, orthopnea , lower extremity edema. Denies joint pain, rashes, pruritis. Denies history of bleeding disorder, clots. Does not have a PCP. 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 q6m [facility]) Anxiety Bladder cyst PAST SURGICAL HISTORY: Hysterectomy Cholecystectomy Family history: Father 42 in a fire; mother age 60 pancreatic cancer Social History: Smoking: current every day smoker Alcohol: denies Drugs: denies Allergies Penicillins Allergy (Mild, Verified 07/20/19 14:50) "felt funny breathing" amlodipine Allergy (Verified 07/20/19 14:50) amoxicillin Allergy (Verified 07/20/19 14:50) clonidine Allergy (Verified 07/20/19 14:50) diltiazem Allergy (Verified 07/20/19 14:50) nebivolol HCl [From Bystolic] Allergy (Verified 07/20/19 14:50) triamterene Allergy (Verified 07/20/19 14:50) epinephrine Adverse Reaction (Severe, Verified 07/20/19 14:50) palpitations- lisinopril Adverse Reaction (Unknown, Verified 07/20/19 14:50) "heart beating slow"- will bring in list of 4 other bp meds she can not tolerate HOME MEDICATIONS: Home Medications Medication Instructions Recorded Diazepam [Valium] 5 mg PO ASDIR PRN 03/21/18 Aspirin [ASA -] 160 mg PO ONCE PRN 12/22/18 Albuterol Sulfate Inhaler - 1 - 2 inh PO Q6H PRN #1 inhaler 01/09/19 [Ventolin HFA Inhaler -] Simethicone [Gas-X] 125 mg PO DAILY 02/03/19 Bismuth Subsalicylate 524 mg PO PRN 07/17/19 [Pepto-Bismol -] Calcium Carbonate [Tums] 200 mg PO PRN 07/17/19 Azithromycin [Zithromax 250mg 250 mg PO DAILY 3 Days #3 tab 07/18/19 Tablets -] Cefuroxime Axetil [Ceftin -] 500 mg PO Q12H 7 Days #14 tablet 07/18/19 REVIEW OF SYSTEMS CONSTITUTIONAL: Absent: fever, chills, diaphoresis, generalized weakness, malaise, loss of appetite, weight change HEENT: Absent: rhinorrhea, nasal congestion, throat pain, throat swelling, difficulty swallowing, mouth swelling, ear pain, eye pain, visual changes CARDIOVASCULAR: +mid sternal chest pain Absent: syncope, palpitations, irregular heart rate, lightheadedness, peripheral edema RESPIRATORY: Absent: cough, shortness of breath, dyspnea with exertion, orthopnea, wheezing, stridor, hemoptysis GASTROINTESTINAL: Absent: abdominal pain, abdominal distension, nausea, vomiting, diarrhea, constipation, melena, hematochezia GENITOURINARY: Absent: dysuria, frequency, urgency, hesitancy, hematuria, flank pain, genital pain MUSCULOSKELETAL: Absent: myalgia, arthralgia, joint swelling, back pain, neck pain SKIN: Absent: rash, itching, pallor HEMATOLOGIC/IMMUNOLOGIC: Absent: easy bleeding, easy bruising, lymphadenopathy, frequent infections ENDOCRINE: Absent: unexplained weight gain, unexplained weight loss, heat intolerance, cold intolerance NEUROLOGIC: Absent: headache, focal weakness or paresthesias, dizziness, unsteady gait, seizure, mental status changes, bladder or bowel incontinence PSYCHIATRIC: Absent: anxiety, depression, suicidal or homicidal ideation, hallucinations. PHYSICAL EXAMINATION Vital Signs - 24 hr 07/20/19 07/20/19 14:44 19:41 Temperature 100.1 F H 100.6 F H Pulse Rate 89 Pulse Rate [ 94 H Right Radial] Respiratory 20 20 Rate Blood Pressure 146/93 Blood Pressure 124/77 [Right Arm] O2 Sat by Pulse 100 95 Oximetry (%) GENERAL: Awake, alert, and fully oriented, in no acute distress. HEAD: Normal with no signs of trauma. EYES: Pupils equal, round and reactive to light, extraocular movements intact, sclera anicteric, conjunctiva clear. LUNGS: Breath sounds equal, clear to auscultation bilaterally. No wheezes, and no crackles. No accessory muscle use. HEART: Regular rate and rhythm, normal S1 and S2 ABDOMEN: Soft, nontender, not distended UPPER EXTREMITIES: 2+ pulses, warm, well-perfused. No cyanosis. No clubbing. No peripheral edema. LOWER EXTREMITIES: 2+ pulses, warm, well-perfused. No calf tenderness. No peripheral edema. NEUROLOGICAL: Cranial nerves II-XII intact. Normal speech. Laboratory Results - last 24 hr 07/20/19 07/20/19 07/20/19 15:10 15:10 15:10 WBC 24.1 H RBC 5.29 H Hgb 16.1 H Hct 47.3 H MCV 89.5 MCH 30.5 MCHC 34.1 RDW 12.2 Plt Count 438 H MPV 7.8 Absolute Neuts (auto) 21.4 Neutrophils % No Result Required. Neutrophils % (Manual) 80.0 Band Neutrophils % 2.0 Lymphocytes % No Result Required. Lymphocytes % (Manual) 12.0 Monocytes % (Manual) 5 Eosinophils % (Manual) 1.0 Platelet Estimate Slt increase D-Dimer Sodium 132 L Potassium 4.0 Chloride 108 H Carbon Dioxide 18 L Anion Gap 6 L BUN 15.0 Creatinine 0.9 Est GFR (CKD-EPI)AfAm 84.01 Est GFR (CKD-EPI)NonAf 72.49 Random Glucose 151 H Calcium 8.8 Total Bilirubin 0.3 AST 15 ALT 18 Alkaline Phosphatase 78 Creatine Kinase Troponin I < 0.03 B-Natriuretic Peptide Total Protein 6.3 L Albumin 3.2 L 07/20/19 07/20/19 07/20/19 15:10 15:10 15:30 WBC RBC Hgb Hct MCV MCH MCHC RDW Plt Count MPV Absolute Neuts (auto) Neutrophils % Neutrophils % (Manual) Band Neutrophils % Lymphocytes % Lymphocytes % (Manual) Monocytes % (Manual) Eosinophils % (Manual) Platelet Estimate D-Dimer 715 H Sodium Potassium Chloride Carbon Dioxide Anion Gap BUN Creatinine Est GFR (CKD-EPI)AfAm Est GFR (CKD-EPI)NonAf Random Glucose Calcium Total Bilirubin AST ALT Alkaline Phosphatase Creatine Kinase 40 Troponin I B-Natriuretic Peptide 202.9 H Total Protein Albumin Imaging 07/17 CXR: unremarkable 07/17 CT chest: mild mediastinal lymphadenopathy; patchy, bibasilar consolidation /atelectasis L>R of uncertain chronicity, compatible with interstitial lung disease 07/18 Echo: mild concentric LVH, LV normal, EF 60-65%; RV normal; mild MR; mild TR; no pericardial effusion 07/20 CXR: increased lung markings and questionable increased density in the right mid periphery 07/20 CTA: negative for PE; small pericardial effusion 11mm; borderline mediastinal lymph nodes non specific; moderate centrilobular emphysema; no gross evidence of infiltrates ASSESSMENT/PLAN 54 year-old female with a PMH significant for HTN, COPD, kidney stones, endometrial cancer s/p hysterectomy x 4 years, and anxiety. Admitted for chest pain, fever. Pleuritic chest pain --troponin neg x 1, second pending; serial troponins were negative x 3 on 07/17-07/18; unlikely ACS --07/18 Echo: mild concentric LVH, LV normal, EF 60-65%; RV normal; mild MR; mild TR; no pericardial effusion; BNP on this admission is 202, markedly decreased from 2 days ago (<--848 on 07/18) --ECG: not suggestive of pericarditis --CTA negative for PE --had a negative nuclear stress test and cardiac CTA in November 2018 at [facility] r/o Pneumonia COPD Interstitial lung disease --successive CT scans do not show gross evidence of infiltrates, although febrile with spike in WBC --has been on azithro and ceftriaxone; start meropenem --blood, sputum, and Legionella negative from 07/17-07/18 --panculture; flu swab; viral panels --ID and pulmonary consults --pre post in am COPD --no wheezing --duonebs TID Chronic leukocytosis Chronic erythrocytosis Thrombocytosis --follows with a buyer agent at [facility], last seen last year; patient told elevated markers are from inflammation and COPD --will get name of buyer agent and records Hypertension --BP stable --not on medication Renal calculi --stable Endometrial cancer s/p hysterectomy x 4 years --did not receive chemo or radiation --follows with [employer]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 Full code. Visit type - Emergency Visit Emergency Visit: Yes ED Registration Date: 07/20/19 Care time: The patient presented to the Emergency Department on the above date and was hospitalized for further evaluation of their emergent condition. - New Patient This patient is new to me today: Yes Date on this admission: 07/20/19 - Critical Care Critical Care patient: No
[2019-07-20] MEDS ORDERED: ASPIRIN 81 MG CHEWABLE TABLETS PO ONE (22:22)
[2019-07-20] MEDS ORDERED: SODIUM CHLORIDE 1,000 ML IV STA (22:23)
[2019-07-20] MEDS ORDERED: MEROPENEM 1 GM in DEXTROSE 5%-WATER 100 ML IVPB SCH (23:15)
[2019-07-20] MEDS ORDERED: ACETAMINOPHEN 325 MG TABLET (FP) PO PRN (23:17)
[2019-07-21] MEDS ORDERED: DEXTROSE 5%-WATER 100 ML IVPB ONE ×4 (01:43→17:02)
[2019-07-21] MEDS: MEROPENEM 1 GM in DEXTROSE 5%-WATER 100 ML IVPB SCH ×3 (02:28→17:17)
[2019-07-21 03:52] LABS: LIPASE 49 U/L (73-393)
[2019-07-21 03:56] LABS: URINE APPEARANCE CLEAR; URINE BILIRUBIN NEGATIVE (NEGATIVE); URINE COLOR YELLOW; URINE GLUCOSE (UA) NEGATIVE (NEGATIVE); URINE KETONE NEGATIVE (NEGATIVE); URINE PROTEIN TRACE (NEGATIVE); URINE UROBILINOGEN 0.2 mg/dL (0.2-1.0)
[2019-07-21 03:57] LABS: EPI CELLS 7.4 /HPF (0-5/HPF); HYALINE CASTS 7.42 /lpf (0-8); URINE BACTERIA 0.5 /hpf (NEGATIVE); URINE LEUK ESTERASE NEGATIVE (NEGATIVE); URINE NITRITE NEGATIVE (NEGATIVE); URINE RBC 6.5 /hpf (0-4); URINE WBC 0.8 /hpf (0-5)
[2019-07-21] MEDS: HEPARIN NA (PORCINE) 5,000 UNITS/ML 1ML VIAL SQ SCH ×3 (06:24→21:24)
[2019-07-21 08:10] LABS: BASO % 0.4 % (0-2.0); EOS % 0.2 % (0-4.5); HEMATOCRIT 45.8 % (32.4-45.2); HEMOGLOBIN 15.6 GM/dl (10.7-15.3); LYMPH % 8.8 % (8-40); MCH 30.6 pg (25.7-33.7); MCHC 33.9 g/dl (32.0-36.0); MEAN CELL VOLUME 90.3 fl (80-96); MEAN PLT VOLUME 8.2 fl (7.5-11.1); MONO % 6.5 % (3.8-10.2); NEUT % 84.1 % (42.8-82.8); PLATELET COUNT 405 K/MM3 (134-434); RBC 5.07 M/mm3 (3.60-5.2); RDW 12.4 % (11.6-15.6); WHITE BLOOD COUNT 26.4 K/mm3 (4.0-10.8)
[2019-07-21 08:12] LABS: CALCIUM 8.8 mg/dl (8.5-10); POTASSIUM 4.3 mmol/L (3.5-5.1)
[2019-07-21 08:16] LABS: INR 1.33 (0.82-1.09); PROTHROMBIN TIME (PATIENT) 14.8 SEC (10.2-13.0)
[2019-07-21 08:24] LABS: ACTIVATED PTT 28.6 SECONDS (25.2-36.5)
[2019-07-21] MEDS ORDERED: MEROPENEM 1 GM VIAL (RESTRICTED TO ID) IVPB ONE ×2 (08:38→17:03)
[2019-07-21] MEDS: ALBUTEROL SO4 2.5/IPRATROPIUM 0.5 INH SOL 3 ML VIAL.NEB. NEB SCH ×3 (08:43→21:24)
[2019-07-21 08:56] LABS: BILIRUBIN,TOTAL 0.8 mg/dl (0.2-1); CREATININE 0.9 mg/dl (0.55-1.3); TOT PROT 6.3 g/dl (6.4-8.2)
[2019-07-21] MEDS: ASPIRIN 81 MG CHEWABLE TABLETS PO SCH (09:12)
[2019-07-21] MEDS: PANTOPRAZOLE 40 MG TABLET (FP) PO SCH (09:12)
--- NOTE | 2019-07-21 09:43 | PN ---
Progress Note (short form) - Note Progress Note: PULMONARY CONSULTATION DICTATED 07/21/19 IMP CHEST PAIN PERICARDITIS/PERICARDIAL EFFUSION H/O ENDOMETRIAL CA HTN TOBACCO ABUSE H/O RA LIKELY COPD PLAN ECHO CARDIOLOGY EVALUATION ESR,CRP NON-STEROIDALS O2 NEEDED ABX PER ID DR HUITRON Problem List - Problems (1) Pericardial effusion Code(s): I31.3 - PERICARDIAL EFFUSION (NONINFLAMMATORY) (2) Chest pain Code(s): R07.9 - CHEST PAIN, UNSPECIFIED Qualifiers: Chest pain type: unspecified Qualified Code(s): R07.9 - Chest pain, unspecified (3) Atypical chest pain Code(s): R07.89 - OTHER CHEST PAIN (4) Pericarditis Code(s): I31.9 - DISEASE OF PERICARDIUM, UNSPECIFIED (5) Pericardial effusion Code(s): I31.3 - PERICARDIAL EFFUSION (NONINFLAMMATORY) (6) Rheumatoid arthritis Code(s): M06.9 - RHEUMATOID ARTHRITIS, UNSPECIFIED (7) History of endometrial cancer Code(s): Z85.42 - PERSONAL HISTORY OF MALIGNANT NEOPLASM OF OTH PRT UTERUS
--- NOTE | 2019-07-21 10:44 | EKG ---
Test Reason : Blood Pressure : / mmHG Vent. Rate : 089 BPM Atrial Rate : 089 BPM P-R Int : 152 ms QRS Dur : 094 ms QT Int : 338 ms P-R-T Axes : -05 001 027 degrees QTc Int : 411 ms NORMAL SINUS RHYTHM NORMAL ECG WHEN COMPARED WITH ECG OF 18-JUL-2019 08:08, NO SIGNIFICANT CHANGE WAS FOUND Confirmed by PATRICK CARRERO MD ([id number]) on 07/21/2019 10:44:43 AM Referred By: LAURIE MOY Confirmed By:PATRICK CARRERO MD
--- NOTE | 2019-07-21 11:01 | CONS ---
DATE OF CONSULTATION: 07/21/2019 REFERRING: Nurse practitioner Osman Patient is a 54-year-old female, past medical history of endometrial CA status post resection; patient required no chemotherapy and/or radiation; hypertension, longstanding history of tobacco use about 3/4 pack per day for many years, currently still smoking; recently hospitalized at [facility] secondary to chest pain, cough. At the time she was felt to have pneumonia. Patient was treated with antibiotics and was discharged home 2 days prior to this admission. On day of admission she started developing chest pain which she describes as sharp in character, midsternal, increasing with inspiration as well as positional. She presented back to emergency with the above. On admission she had a CT of the chest which revealed an increasing pericardial effusion 11 mm. She was admitted. She was started on antibiotic therapy. Patient denies any history of DVT or PE in the past. Of note, she also does have a history of rheumatoid arthritis, but is not on any medication. She denies any history of fevers, weight loss or night sweats. She denies any hemoptysis. PAST MEDICAL HISTORY: Again includes hypertension, endometrial CA status post resection. CURRENT REVIEW OF SYSTEMS: Positive shortness of breath. Positive chest pain. No fever. No chills. No hemoptysis. No abdominal pain. No lower extremity edema. CURRENT MEDICATIONS: Include Tylenol, meropenem, heparin, DuoNeb, aspirin, Protonix. PHYSICAL EXAMINATION: General: Patient is a well-developed, well-nourished female awake, alert in no acute distress. Vital Signs: She is afebrile. Blood pressure 134/82, respiratory rate is 18. O2 saturation is 94% on room air. HEENT: Normocephalic, atraumatic. Neck: Supple. Heart: Regular, S1, S2. Chest: Clear. Abdomen: Soft. Bowel sounds are positive. Extremities: No cyanosis or edema. Chest CT reveals increasing pericardial effusion. No infiltrates. No effusion. There is mild mediastinal adenopathy and evidence of emphysema in the upper lobes and atelectatic changes at the bases. LABORATORIES: WBC is 26.4. Hemoglobin is 15.6, hematocrit 45.8 with a platelet count of 405,000. D-dimer is 715. BUN is 12. Creatinine is 0.9. BNP is 202, lipase 49. IMPRESSION: 1. Chest pain secondary to acute pericarditis, pericardial effusion etiology to be determined, possible infectious, inflammatory. 2. History of endometrial carcinoma. 3. Hypertension. 4. Tobacco use. 5. History of rheumatoid arthritis. 6. Likely chronic obstructive pulmonary disease. PLAN: Echocardiogram. Cardiology evaluation. ESR, CRP. Nonsteroidals. Supplemental O2 as needed. Antibiotics as per Infectious Disease. RONALD HUITRON M.D. PARUL/[id number]
--- NOTE | 2019-07-21 12:08 | ECHO ---
Name: MOE KU Exam:Adult Echocardiogram Study Date: 07/21/2019 10:22 AM Age: 54 yrs Reason For Study: Pericardial Effusion only Height: 68 in Weight: 251 lb BSA: 2.3 m2 Procedure A limited two-dimensional transthoracic echocardiogram was performed (2D). Left Ventricle The left ventricular ejection fraction is normal. Pericardium/Pleura Small pericardial effusion (<1cm). There are no echocardiographic indications of cardiac tamponade. Interpretation Summary The left ventricular ejection fraction is normal. Small pericardial effusion (<1cm) There are no echocardiographic indications of cardiac tamponade. MD Tyler Solano 07/21/2019 12:08 PM
--- NOTE | 2019-07-21 12:18 | PN ---
Physical Exam: SUBJECTIVE: Patient seen and examined oob to chair. Chatting amiably with her brother, legs crossed, relaxed. States chest pain continues to be severe. OBJECTIVE: Vital Signs Period Temp Pulse Resp BP Sys/Hill Pulse Ox Last 24 Hr 98.5 F-100.6 F 83-98 17-20 100-146/57-93 93-100 GENERAL: Awake, alert, and fully oriented, in no acute distress. HEAD: Normal with no signs of trauma. LUNGS: Breath sounds equal, clear to auscultation bilaterally. No wheezes, and no crackles. No accessory muscle use. HEART: Regular rate and rhythm, normal S1 and S2, no rub ABDOMEN: Soft, nontender, not distended UPPER EXTREMITIES: 2+ pulses, warm, well-perfused. No cyanosis. No clubbing. No peripheral edema. LOWER EXTREMITIES: 2+ pulses, warm, well-perfused. No calf tenderness. No peripheral edema. NEUROLOGICAL: Cranial nerves II-XII intact. Normal speech. Laboratory Results - last 24 hr 07/20/19 07/20/19 07/20/19 15:10 15:10 15:10 WBC 24.1 H RBC 5.29 H Hgb 16.1 H Hct 47.3 H MCV 89.5 MCH 30.5 MCHC 34.1 RDW 12.2 Plt Count 438 H MPV 7.8 Absolute Neuts (auto) 21.4 Neutrophils % No Result Required. Neutrophils % (Manual) 80.0 Band Neutrophils % 2.0 Lymphocytes % No Result Required. Lymphocytes % (Manual) 12.0 Monocytes % Monocytes % (Manual) 5 Eosinophils % Eosinophils % (Manual) 1.0 Basophils % Platelet Estimate Slt increase ESR PT with INR INR PTT (Actin FS) D-Dimer Sodium 132 L Potassium 4.0 Chloride 108 H Carbon Dioxide 18 L Anion Gap 6 L BUN 15.0 Creatinine 0.9 Est GFR (CKD-EPI)AfAm 84.01 Est GFR (CKD-EPI)NonAf 72.49 Random Glucose 151 H Lactic Acid Calcium 8.8 Magnesium Total Bilirubin 0.3 AST 15 ALT 18 Alkaline Phosphatase 78 Creatine Kinase Troponin I < 0.03 B-Natriuretic Peptide Total Protein 6.3 L Albumin 3.2 L Lipase Urine Color Urine Appearance Urine pH Ur Specific [place] Urine Protein Urine Glucose (UA) Urine Ketones Urine Blood Urine Nitrite Urine Bilirubin Urine Urobilinogen Ur Leukocyte Esterase Urine WBC (Auto) Urine RBC (Auto) Urine Casts (Auto) U Epithel Cells (Auto) Urine Bacteria (Auto) 07/20/19 07/20/19 07/20/19 15:10 15:10 15:30 WBC RBC Hgb Hct MCV MCH MCHC RDW Plt Count MPV Absolute Neuts (auto) Neutrophils % Neutrophils % (Manual) Band Neutrophils % Lymphocytes % Lymphocytes % (Manual) Monocytes % Monocytes % (Manual) Eosinophils % Eosinophils % (Manual) Basophils % Platelet Estimate ESR PT with INR INR PTT (Actin FS) D-Dimer 715 H Sodium Potassium Chloride Carbon Dioxide Anion Gap BUN Creatinine Est GFR (CKD-EPI)AfAm Est GFR (CKD-EPI)NonAf Random Glucose Lactic Acid Calcium Magnesium Total Bilirubin AST ALT Alkaline Phosphatase Creatine Kinase 40 Troponin I B-Natriuretic Peptide 202.9 H Total Protein Albumin Lipase Urine Color Urine Appearance Urine pH Ur Specific [place] Urine Protein Urine Glucose (UA) Urine Ketones Urine Blood Urine Nitrite Urine Bilirubin Urine Urobilinogen Ur Leukocyte Esterase Urine WBC (Auto) Urine RBC (Auto) Urine Casts (Auto) U Epithel Cells (Auto) Urine Bacteria (Auto) 07/20/19 07/20/19 07/21/19 22:00 22:40 01:30 WBC RBC Hgb Hct MCV MCH MCHC RDW Plt Count MPV Absolute Neuts (auto) Neutrophils % Neutrophils % (Manual) Band Neutrophils % Lymphocytes % Lymphocytes % (Manual) Monocytes % Monocytes % (Manual) Eosinophils % Eosinophils % (Manual) Basophils % Platelet Estimate ESR PT with INR INR PTT (Actin FS) D-Dimer Sodium Potassium Chloride Carbon Dioxide Anion Gap BUN Creatinine Est GFR (CKD-EPI)AfAm Est GFR (CKD-EPI)NonAf Random Glucose Lactic Acid 1.9 Calcium Magnesium Total Bilirubin AST ALT Alkaline Phosphatase Creatine Kinase Troponin I < 0.03 B-Natriuretic Peptide Total Protein Albumin Lipase Urine Color Cancelled Urine Appearance Cancelled Urine pH Cancelled Ur Specific [place] Urine Protein Cancelled Urine Glucose (UA) Cancelled Urine Ketones Cancelled Urine Blood Cancelled Urine Nitrite Cancelled Urine Bilirubin Cancelled Urine Urobilinogen Cancelled Ur Leukocyte Esterase Cancelled Urine WBC (Auto) Urine RBC (Auto) Urine Casts (Auto) U Epithel Cells (Auto) Urine Bacteria (Auto) 07/21/19 07/21/19 07/21/19 01:30 02:30 07:17 WBC 26.4 H RBC 5.07 Hgb 15.6 H Hct 45.8 H MCV 90.3 MCH 30.6 MCHC 33.9 RDW 12.4 Plt Count 405 MPV 8.2 Absolute Neuts (auto) 22.2 Neutrophils % 84.1 H Neutrophils % (Manual) Band Neutrophils % Lymphocytes % 8.8 Lymphocytes % (Manual) Monocytes % 6.5 Monocytes % (Manual) Eosinophils % 0.2 Eosinophils % (Manual) Basophils % 0.4 Platelet Estimate ESR PT with INR INR PTT (Actin FS) D-Dimer Sodium Potassium Chloride Carbon Dioxide Anion Gap BUN Creatinine Est GFR (CKD-EPI)AfAm Est GFR (CKD-EPI)NonAf Random Glucose Lactic Acid Calcium Magnesium Total Bilirubin AST ALT Alkaline Phosphatase Creatine Kinase Troponin I < 0.02 B-Natriuretic Peptide Total Protein Albumin Lipase 49 L Urine Color Yellow Urine Appearance Clear Urine pH 5.0 Ur Specific [place] 1.046 H Urine Protein Trace Urine Glucose (UA) Negative Urine Ketones Negative Urine Blood Moderate Urine Nitrite Negative Urine Bilirubin Negative Urine Urobilinogen 0.2 Ur Leukocyte Esterase Negative Urine WBC (Auto) 0.8 Urine RBC (Auto) 6.5 Urine Casts (Auto) 7.42 U Epithel Cells (Auto) 7.4 Urine Bacteria (Auto) 0.5 07/21/19 07/21/19 07/21/19 07:17 07:17 10:23 WBC RBC Hgb Hct MCV MCH MCHC RDW Plt Count MPV Absolute Neuts (auto) Neutrophils % Neutrophils % (Manual) Band Neutrophils % Lymphocytes % Lymphocytes % (Manual) Monocytes % Monocytes % (Manual) Eosinophils % Eosinophils % (Manual) Basophils % Platelet Estimate ESR 44 H PT with INR 14.8 H INR 1.33 H PTT (Actin FS) 28.6 D-Dimer Sodium 134 L Potassium 4.3 Chloride 106 Carbon Dioxide 22 Anion Gap 6 L BUN 12.0 Creatinine 0.9 Est GFR (CKD-EPI)AfAm 84.01 Est GFR (CKD-EPI)NonAf 72.49 Random Glucose 124 H Lactic Acid Calcium 8.8 Magnesium 2.0 Total Bilirubin 0.8 AST 12 L ALT 17 Alkaline Phosphatase 65 D Creatine Kinase Troponin I B-Natriuretic Peptide Total Protein 6.3 L Albumin 3.0 L Lipase Urine Color Urine Appearance Urine pH Ur Specific [place] Urine Protein Urine Glucose (UA) Urine Ketones Urine Blood Urine Nitrite Urine Bilirubin Urine Urobilinogen Ur Leukocyte Esterase Urine WBC (Auto) Urine RBC (Auto) Urine Casts (Auto) U Epithel Cells (Auto) Urine Bacteria (Auto) Active Medications Generic Name Dose Route Start Last Admin Trade Name Freq PRN Reason Stop Dose Admin Acetaminophen 650 mg 07/20/19 23:17 07/21/19 00:51 Tylenol - PO 650 mg Q6H PRN Administration PAIN LEVEL 1-5 Albuterol/Ipratropium 1 amp 07/21/19 08:00 07/21/19 08:43 Duoneb - NEB 1 amp RTID PINKY Administration Aspirin 81 mg 07/21/19 10:00 07/21/19 09:12 Asa - PO 81 mg DAILY PINKY Administration Heparin Sodium (Porcine) 5,000 unit 07/21/19 06:00 07/21/19 06:24 Heparin - SQ 5,000 unit TID PINKY Administration Meropenem 1 gm/ Dextrose 100 mls @ 200 mls/hr 07/20/19 23:15 IVPB Q8H-IV PINKY Meropenem 1 gm/ Dextrose 100 mls @ 200 mls/hr 07/21/19 02:00 07/21/19 09:12 IVPB 07/21/19 18:29 200 mls/hr Q8H-IV PINKY Administration Ibuprofen 800 mg 07/21/19 12:05 Motrin - PO Q8H PRN FEVER Pantoprazole Sodium 40 mg 07/21/19 10:00 07/21/19 09:12 Protonix - PO 40 mg DAILY PINKY Administration Imaging 07/17 CXR: unremarkable 07/17 CT chest: mild mediastinal lymphadenopathy; patchy, bibasilar consolidation /atelectasis L>R of uncertain chronicity, compatible with interstitial lung disease 07/20 CXR: increased lung markings and questionable increased density in the right mid periphery 07/20 CTA: negative for PE; small pericardial effusion 11mm; borderline mediastinal lymph nodes non specific; moderate centrilobular emphysema; no gross evidence of infiltrates ASSESSMENT/PLAN 54 year-old female with a PMH significant for HTN, COPD, kidney stones, endometrial cancer s/p hysterectomy x 4 years, and anxiety. Admitted for chest pain, fever. Pleuritic chest pain --troponin neg x 3; serial troponins were also negative x 3 on 07/17-07/18; had a negative nuclear stress test and cardiac CTA in November 2018 at [facility] --07/18 Echo: mild concentric LVH, LV normal, EF 60-65%; RV normal; mild MR; mild TR; no pericardial effusion; BNP on this admission is 202, markedly decreased from 2 days ago (<--848 on 07/18) --repeat echo today: EF normal; <1cm pericardial effusion, no indication of cardiac tamponade --CTA negative for PE r/o Pneumonia COPD Interstitial lung disease --WBC continues to trend up, Tm 100.6 --successive CT scans do not show gross evidence of infiltrates --continue meropenem (day #2) --blood, sputum, flu, and Legionella negative from 07/17-07/18 --pancultured 07/21; patient refused blood draw for viral panels today --ID and pulmonary consults --pre post: 91% on room air COPD --no wheezing --duonebs TID Chronic leukocytosis Chronic erythrocytosis Thrombocytosis --follows with heme/onc Dr. 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 Full code. Visit type - Emergency Visit Emergency Visit: Yes ED Registration Date: 07/20/19 Care time: The patient presented to the Emergency Department on the above date and was hospitalized for further evaluation of their emergent condition. - New Patient This patient is new to me today: No - Critical Care Critical Care patient: No
[2019-07-21] MEDS: IBUPROFEN 400 MG TABLET (FP) PO PRN (12:27)
--- NOTE | 2019-07-21 13:14 | CON.ID ---
Consult Consult Specialty:: infectious diseases Referred by:: Peg Reason for Consultation:: pneumonia - History of Present Illness Chief Complaint: sob - Past Medical History Cardio/Vascular: Yes: HTN. No: AFIB Pulmonary: Yes: COPD ...LMP: 05/02/15 - Alcohol/Substance Use Hx Alcohol Use: No - Smoking History Smoking history: Current every day smoker Have you smoked in the past 12 months: Yes Aproximately how many cigarettes per day: 10 Home Medications - Allergies Allergies/Adverse Reactions: Allergies Allergy/AdvReac Type Severity Reaction Status Date / Time Penicillins Allergy Mild Verified 07/20/19 14:50 amlodipine Allergy Verified 07/20/19 14:50 amoxicillin Allergy Verified 07/20/19 14:50 clonidine Allergy Verified 07/20/19 14:50 diltiazem Allergy Verified 07/20/19 14:50 nebivolol HCl [From Bystolic] Allergy Verified 07/20/19 14:50 triamterene Allergy Verified 07/20/19 14:50 epinephrine AdvReac Severe Verified 07/20/19 14:50 lisinopril AdvReac Unknown Verified 07/20/19 14:50 - Home Medications Home Medications: Ambulatory Orders Diazepam [Valium] 5 mg PO ASDIR PRN 03/21/18 Aspirin [ASA -] 160 mg PO ONCE PRN 12/22/18 Albuterol Sulfate Inhaler - [Ventolin HFA Inhaler -] 1 - 2 inh PO Q6H PRN #1 inhaler 01/09/19 Simethicone [Gas-X] 125 mg PO DAILY 02/03/19 Bismuth Subsalicylate [Pepto-Bismol -] 524 mg PO PRN 07/17/19 Calcium Carbonate [Tums] 200 mg PO PRN 07/17/19 Azithromycin [Zithromax 250mg Tablets -] 250 mg PO DAILY 3 Days #3 tab 07/18/19 Cefuroxime Axetil [Ceftin -] 500 mg PO Q12H 7 Days #14 tablet 07/18/19 Physical Exam Vital Signs: Vital Signs Temperature 99 F 07/21/19 08:53 Pulse Rate 85 07/21/19 08:53 Respiratory Rate 18 07/21/19 09:00 Blood Pressure 134/82 07/21/19 08:53 O2 Sat by Pulse Oximetry (%) 94 L 07/21/19 09:34 Labs: CBC, BMP 07/21/19 07:17 07/21/19 07:17
--- NOTE | 2019-07-21 15:25 | EKG ---
Test Reason : Blood Pressure : / mmHG Vent. Rate : 084 BPM Atrial Rate : 084 BPM P-R Int : 152 ms QRS Dur : 104 ms QT Int : 340 ms P-R-T Axes : 021 -03 037 degrees QTc Int : 401 ms NORMAL SINUS RHYTHM NONSPECIFIC ST ABNORMALITY ABNORMAL ECG WHEN COMPARED WITH ECG OF 20-JUL-2019 14:54, NO SIGNIFICANT CHANGE WAS FOUND Confirmed by PATRICK CARRERO MD ([id number]) on 07/21/2019 3:24:32 PM Referred By: TRISTEN Confirmed By:PATRICK CARRERO MD
--- NOTE | 2019-07-21 17:35 | CON.CARD ---
Consult Consult Specialty:: cardiology Reason for Consultation:: pericardial effusion - History of Present Illness Chief Complaint: Pt A&Ox3; she is finally able to lie back in bed without chest pain returning. History of Present Illness: 54 white woman with h/o HTN, endometrial CA s/p resection, COPD; bronchial asthma; recent admission for PNA; obesity; long-term cigarette smoker; rheumatoid arthritis ("my WBCs are always high") with chronic bilateral pain in her feet, sedentary lifestyle, now presenting to ED with chest pain. Pt states that since her discharge from the hospital 2 days ago, she had been feeling better. However, today, her chest pain recurred. Pt describes sharp stabbing pain in the middle of her chest worse with deep inspiration. Denies SOB. Denies leg swelling or calf pain. Pt notes that this is the same pain she had whens he was admitted. She had a fever this week, and had been having a cough with phlegm. Denies dysuria. Pt reports compliance with the antibiotics she was sent home with but has only taken motrin once for pain today at 1pm. Pt began having dyspnea on exertion about a month ago; denies chest pain at that time, but was unable to walk up her usual flight of stairs without feeling significantly short of breath. Denies leg swelling. Pt says that she went to her doctor this March with chest discomfort and SOB. Chronic pain in her feet precluded having a treadmill stress test; she had a CTA that reportedly showed no evidence of coronary artery disease. - History Source History Provided By: Patient, Family Member, Significant Other, Medical Record Limitations to Obtaining History: No Limitations - Past Medical History Cardio/Vascular: Yes: HTN. No: AFIB Pulmonary: Yes: COPD Reproductive: Yes: Postmenopausal ...LMP: 05/02/15 ...: No Heme/Onc: Yes: Cancer (endometrial) Psych: Yes: Addictions (cigarettes) Rheumatology: Yes: Rheumatoid Arthritis Endocrine: No: Diabetes Mellitus - Alcohol/Substance Use Hx Alcohol Use: No - Smoking History Smoking history: Current every day smoker Have you smoked in the past 12 months: Yes Aproximately how many cigarettes per day: 10 - Social History Usual Living Arrangement: With Significant Other Home Medications - Allergies Allergies/Adverse Reactions: Allergies Allergy/AdvReac Type Severity Reaction Status Date / Time Penicillins Allergy Mild Verified 07/20/19 14:50 amlodipine Allergy Verified 07/20/19 14:50 amoxicillin Allergy Verified 07/20/19 14:50 clonidine Allergy Verified 07/20/19 14:50 diltiazem Allergy Verified 07/20/19 14:50 nebivolol HCl [From Bystolic] Allergy Verified 07/20/19 14:50 triamterene Allergy Verified 07/20/19 14:50 epinephrine AdvReac Severe Verified 07/20/19 14:50 lisinopril AdvReac Unknown Verified 07/20/19 14:50 - Home Medications Home Medications: Ambulatory Orders Diazepam [Valium] 5 mg PO ASDIR PRN 03/21/18 Aspirin [ASA -] 160 mg PO ONCE PRN 12/22/18 Albuterol Sulfate Inhaler - [Ventolin HFA Inhaler -] 1 - 2 inh PO Q6H PRN #1 inhaler 01/09/19 Simethicone [Gas-X] 125 mg PO DAILY 02/03/19 Bismuth Subsalicylate [Pepto-Bismol -] 524 mg PO PRN 07/17/19 Calcium Carbonate [Tums] 200 mg PO PRN 07/17/19 Azithromycin [Zithromax 250mg Tablets -] 250 mg PO DAILY 3 Days #3 tab 07/18/19 Cefuroxime Axetil [Ceftin -] 500 mg PO Q12H 7 Days #14 tablet 07/18/19 Family Medical History Family History: Denies (no family hx CAD or CVA) Review of Systems - Review of Systems Constitutional: reports: Fever Eyes: reports: No Symptoms HENT: reports: No Symptoms Neck: reports: No Symptoms Cardiovascular: reports: Chest Pain, Shortness of Breath Respiratory: reports: SOB Gastrointestinal: reports: No Symptoms Genitourinary: reports: No Symptoms Breasts: reports: No Symptoms Reported Musculoskeletal: reports: Joint Pain Integumentary: reports: No Symptoms Neurological: reports: Other (pain in her feet) Endocrine: reports: Other Psychiatric: reports: Other - Risk Factors Known Risk Factors: Yes: Age, Hypertension, Physical Inactivity, Smoking Vital Signs: Vital Signs Temperature 98.9 F 07/21/19 14:00 Pulse Rate 90 07/21/19 14:00 Respiratory Rate 20 07/21/19 14:00 Blood Pressure 132/74 07/21/19 14:00 O2 Sat by Pulse Oximetry (%) 94 L 07/21/19 09:34 Constitutional: Yes: Well Nourished Eyes: Yes: WNL HENT: Yes: WNL Neck: Yes: WNL - Other Data Labs, Other Data: CBC, BMP 07/21/19 07:17 07/21/19 07:17 INR, PTT INR 1.33 (0.82-1.09) H 07/21/19 07:17 Troponin, BNP 07/20/19 07/21/19 22:00 02:30 Troponin I < 0.03 < 0.02 Troponin, BNP 07/20/19 07/21/19 22:00 02:30 Troponin I < 0.03 < 0.02 Problem List - Problems (1) Leukocytosis Code(s): D72.829 - ELEVATED WHITE BLOOD CELL COUNT, UNSPECIFIED (2) History of endometrial cancer Code(s): Z85.42 - PERSONAL HISTORY OF MALIGNANT NEOPLASM OF OTH PRT UTERUS (3) Pericardial effusion Assessment/Plan: small quantity pericardial effusion, with no evidence of cardiac tamponade. CK WNL; no acute EKG changes; TNI < 0.03 x 3. CTA: no evidence of CAD. ECHO: normal LVEF. Etiologies may include inflammation (viral, RA), malignancy, thyroid, pulmonic. F/u TSH. F/u with PMD, rheumatoligist, oncologist. Plan on repeat ECHO in the next 6-12 months to f/u effusion (sooner if pt is symptomatic). From a cardiac perspective, pt may be followed as an outpatient. Code(s): I31.3 - PERICARDIAL EFFUSION (NONINFLAMMATORY) (4) Pneumonia Code(s): J18.9 - PNEUMONIA, UNSPECIFIED ORGANISM Qualifiers: Pneumonia type: due to unspecified organism Laterality: unspecified laterality Lung location: unspecified part of lung Qualified Code(s): J18.9 - Pneumonia, unspecified organism (5) Rheumatoid arthritis Code(s): M06.9 - RHEUMATOID ARTHRITIS, UNSPECIFIED (6) Atypical chest pain Assessment/Plan: (Please see further details under "Pericardial Effusion"). Chest pain likely secondary to non-cardiac issues (e.g. COPD/PNA with cough). Code(s): R07.89 - OTHER CHEST PAIN (7) Bronchitis Code(s): J40 - BRONCHITIS, NOT SPECIFIED ACUTE OR CHRONIC (8) Cough Code(s): R05 - COUGH (9) Febrile illness, acute Assessment/Plan: F/u with PMD, ID. Code(s): R50.9 - FEVER, UNSPECIFIED (10) Acute exacerbation of COPD with asthma Assessment/Plan: Moderate COPD noted on chest CT. The imperative need to stop smoking was discussed in detail with pt. Code(s): J44.1 - CHRONIC OBSTRUCTIVE PULMONARY DISEASE W (ACUTE) EXACERBATION; J45.901 - UNSPECIFIED ASTHMA WITH (ACUTE) EXACERBATION
[2019-07-22] MEDS ORDERED: MEROPENEM 1 GM VIAL (RESTRICTED TO ID) IVPB ONE ×2 (01:57→08:39)
[2019-07-22] MEDS ORDERED: DEXTROSE 5%-WATER 100 ML IVPB ONE ×2 (01:57→08:39)
[2019-07-22] MEDS: MEROPENEM 1 GM in DEXTROSE 5%-WATER 100 ML IVPB SCH ×2 (02:01→09:09)
[2019-07-22] MEDS: HEPARIN NA (PORCINE) 5,000 UNITS/ML 1ML VIAL SQ SCH (05:45)
[2019-07-22 05:56] VITALS: BP 141/87; PULSE 84
[2019-07-22] MEDS: ALBUTEROL SO4 2.5/IPRATROPIUM 0.5 INH SOL 3 ML VIAL.NEB. NEB SCH (08:11)
[2019-07-22] MEDS: ASPIRIN 81 MG CHEWABLE TABLETS PO SCH (09:08)
[2019-07-22] MEDS: PANTOPRAZOLE 40 MG TABLET (FP) PO SCH (09:09)
[2019-07-22] MEDS: IBUPROFEN 400 MG TABLET (FP) PO PRN (09:12)
[2019-07-22 11:24] VITALS: TEMP 98.8
--- NOTE | 2019-07-22 11:39 | DS ---
Physical Exam: SUBJECTIVE: Patient seen and examined OBJECTIVE: Vital Signs Period Temp Pulse Resp BP Sys/Hill Pulse Ox Last 24 Hr 98.1 F-98.9 F 77-90 18-20 103-143/64-87 92-95 PHYSICAL EXAM GENERAL: The patient is awake, alert, and fully oriented, in no acute distress. HEAD: Normal with no signs of trauma. EYES: PERRL, extraocular movements intact, sclera anicteric, conjunctiva clear. ENT: Ears normal, nares patent, oropharynx clear without exudates, moist mucous membranes. NECK: Trachea midline, full range of motion, supple. LUNGS: Breath sounds equal, clear to auscultation bilaterally, no wheezes, no crackles, no accessory muscle use. HEART: Regular rate and rhythm, S1, S2 without murmur, rub or gallop. ABDOMEN: Soft, nontender, nondistended, normoactive bowel sounds, no guarding, no rebound, no hepatosplenomegaly, no masses. EXTREMITIES: 2+ pulses, warm, well-perfused, no edema. NEUROLOGICAL: Cranial nerves II through XII grossly intact. Normal speech, gait not observed. PSYCH: Normal mood, normal affect. SKIN: Warm, dry, normal turgor, no rashes or lesions noted. LABS Laboratory Results - last 24 hr 07/21/19 07/21/19 07/21/19 06:40 10:23 12:14 Hemoglobin A1c % 6.0 C-Reactive Protein > 19.0 H Triglycerides 71 Cholesterol 118 Total LDL Cholesterol 73 HDL Cholesterol 31 L TSH 1.50 HOSPITAL COURSE: Date of Admission:07/20/19 Date of Discharge: 07/22/19 Minutes to complete discharge: 35 Discharge Summary Problems reviewed: Yes Reason For Visit: CHEST PAIN/ PNEUMONIA Current Active Problems Acute exacerbation of COPD with asthma (Acute) Chest pain (Acute) History of endometrial cancer (Acute) Leukocytosis (Acute) Pericardial effusion (Acute) Pericardial effusion (Acute) Pericarditis (Acute) Pneumonia (Acute) Rheumatoid arthritis (Acute) Condition: Stable - Instructions Diet, Activity, Other Instructions: It is recommended you follow up with your manager books Dr. Cori Styles within one week of your discharge. Return to the emergency department for any new or worsening symptoms. Referrals: Cori Styles MD [Staff Physician] - 1 Week - Home Medications Comprehensive Discharge Medication List: Ambulatory Orders Diazepam [Valium] 5 mg PO ASDIR PRN 03/21/18 Albuterol Sulfate Inhaler - [Ventolin HFA Inhaler -] 1 - 2 inh PO Q6H PRN #1 inhaler 01/09/19 Simethicone [Gas-X] 125 mg PO DAILY 02/03/19 Bismuth Subsalicylate [Pepto-Bismol -] 524 mg PO PRN 07/17/19 Calcium Carbonate [Tums] 200 mg PO PRN 07/17/19 This patient is new to me today: No Emergency Visit: Yes ED Registration Date: 07/20/19 Care time: The patient presented to the Emergency Department on the above date and was hospitalized for further evaluation of their emergent condition. Critical Care patient: No - Discharge Referral Referred to [facility] Med [facility] No
== END 2019-07-22 11:49 | disposition home or self-care (01) | DRG 140 ==
LOC: FER 14:42 → UNDOADMIN 19:58 → FM/S 19:58
PROVIDERS: ADMIT Internal Medicine; ATTEND Nurse Practitioner Acute Care
DX: J44.1 Chronic obstructive pulmonary disease with (acute) exacerbation (principal); R07.89 Other chest pain; D72.829 Elevated white blood cell count, unspecified; D47.3 Essential (hemorrhagic) thrombocythemia; I10 Essential (primary) hypertension; F41.9 Anxiety disorder, unspecified; I31.3 Pericardial effusion (noninflammatory); M06.9 Rheumatoid arthritis, unspecified; F17.210 Nicotine dependence, cigarettes, uncomplicated; J84.9 Interstitial pulmonary disease, unspecified; Z85.42 Personal history of malignant neoplasm of other parts of uterus; D75.1 Secondary polycythemia; J44.9 Chronic obstructive pulmonary disease, unspecified
CPT/HCPCS: 36415; 71046-TC-FY; 71275-TC; 80053; 80061; 81003; 82550; 83036; 83605; 83690; 83735; 83880; 84443; 84484; 85025; 85379; 85610; 85651; 85730; 86140; 87040; 87070; 87086; 87205; 93005; 93306-TC; 94640; 99285-25; J0131; J1644; J7030; Q9967

== ENCOUNTER 2021-04-04 14:13 | Emergency (ER) | payer OTHER ==
[2021-04-04 14:32] VITALS: BP 153/103; PULSE 87; TEMP 99.4; BMI 38.0
== END 2021-04-04 14:57 | disposition home or self-care (01) ==
LOC: FER 14:13
DX: S63.614A Unspecified sprain of right ring finger, initial encounter (principal); W23.0XXA Caught, crushed, jammed, or pinched between moving objects, initial encounter
CPT/HCPCS: 73140-TC-RT-FY; 99283-25